=== PATIENT | female | born 1970 ===

== ENCOUNTER 2018-07-08 13:13 | Emergency (ER) | payer SELFPAY ==
[2018-07-08 13:39] VITALS: PULSE 83; RESP 18; TEMP 98.3; O2SAT 98
--- NOTE | 2018-07-08 14:18 | ED PDOC ---
Lower Extremity Pain/Injury Time Seen by Provider: 07/08/18 13:50 Chief Complaint (Nursing): Lower Extremity Problem/Injury Chief Complaint (Provider): Lower Extremity Problem/Injury History Per: Patient History/Exam Limitations: no limitations Onset/Duration Of Symptoms: Days (x30) Current Symptoms Are (Timing): Still Present Additional Complaint(s): 47 y/o female presents to the ED complaining of pain to the left 2nd and 3rd toes for the past month. Patient reports taking one tablet of Advil for pain this morning which did not help. She denies trauma or injury but states she is on her feet a lot. PMD: Aby Parry Past Medical History Reviewed: Historical Data, Nursing Documentation, Vital Signs Vital Signs: Last Vital Signs Temp 98.3 F 07/08/18 13:38 Pulse 83 07/08/18 13:38 Resp 18 07/08/18 13:38 BP Pulse Ox 98 07/08/18 13:38 - Medical History PMH: Anemia, HTN - Surgical History Surgical History: No Surg Hx - Family History Family History: States: No Known Family Hx - Living Arrangements Living Arrangements: With Family - Social History Current smoker - smoking cessation education provided: No Alcohol: None Drugs: Denies - Home Medications Home Medications: Ambulatory Orders Medication Instructions Recorded Ascorbic Acid [Vitamin C 500 mg 500 mg PO DAILY 01/01/18 Tab] Cyanocobalamin [Vitamin B12 1000 1 tab PO DAILY 01/01/18 mcg Tab] Olmesartan Medoxomil [Benicar] 40 mg PO DAILY 01/01/18 Ferrous Sulfate [Feosol] 325 mg PO BID #60 tab 01/02/18 Ibuprofen [Motrin] 600 mg PO Q6 PRN #15 tab 07/08/18 - Allergies Allergies/Adverse Reactions: Allergies Allergy/AdvReac Type Severity Reaction Status Date / Time No Known Allergies Allergy Verified 04/14/18 17:41 Wells Criteria for PE - Wells Criteria for Pulmonary Embolism Clinical Signs and Symptoms of DVT: No P.E is #1 Diagnosis, or Equally Likely: No Heart Rate >100: No Immobilization at least 3 days;Surgery previous 4 weeks: No Previous, objectively diagnosed PE or DVT: No Hemoptysis: No Malignancy w/treatment within 6 months, or palliative: No Total Score: 0 Review of Systems ROS Statement: Except As Marked, All Systems Reviewed And Found Negative Musculoskeletal: Positive for: Foot Pain (2nd and 3rd toe pain) Physical Exam - Reviewed Nursing Documentation Reviewed: Yes Vital Signs Reviewed: Yes - Physical Exam Appears: Positive for: Well, No Acute Distress Head Exam: Positive for: ATRAUMATIC Skin: Positive for: Normal Color. Negative for: Rash Eye Exam: Positive for: Normal appearance Cardiovascular/Chest: Positive for: Regular Rate, Rhythm Respiratory: Positive for: Normal Breath Sounds. Negative for: Accessory Muscle Use, Respiratory Distress Extremity: Positive for: Normal ROM, Tenderness (Mild tenderness to the left 2nd and 3rd toe, no swelling or erythema, full range of motion of both toes without limitation.) Neurologic/Psych: Positive for: Alert, Oriented. Negative for: Motor/Sensory Deficits - ECG O2 Sat by Pulse Oximetry: 98 (RA) Pulse Ox Interpretation: Normal - Other Rad Left foot x-ray X-Ray: Interpreted by Me, Viewed By Me X-Ray Interpretation: no fx, no dis Medical Decision Making Medical Decision Making: Time: 1415 Impression: 47 year old with pain to left 2nd and 3rd toes Plan: -- Tylenol 975 mg PO -- Foot Left 3 Views Patient aware of x-ray results. Patient given prescription for Motrin and was referred to clinic for follow up. Zain tape to toes declined by patient. Scribe Attestation: Documented by Abel Milan, acting as a scribe for Henny Winchester PA-C. Provider Scribe Attestation: All medical record entries made by the Scribe were at my direction and personally dictated by me. I have reviewed the chart and agree that the record accurately reflects my personal performance of the history, physical exam, medical decision making, and the department course for this patient. I have also personally directed, reviewed, and agree with the discharge instructions and disposition. Disposition - Clinical Impression Clinical Impression: Toe pain - Patient ED Disposition Is Patient to be Admitted: No Counseled Patient/Family Regarding: Studies Performed, Diagnosis, Need For Followup, Rx Given - Disposition Referrals: Podiatry Clinic [Outside] Disposition: Routine/Home Disposition Time: 14:46 Condition: STABLE Additional Instructions: Take prescription meds as directed as needed for pain. Follow-up with podiatry clinic for further evaluation. Prescriptions: Ibuprofen [Motrin] 600 mg PO Q6 PRN #15 tab PRN Reason: Pain, Moderate (4-7) Instructions: Foot Sprain (DC) Forms: [employer] ([place]) Print Language: CYMRO
--- NOTE | 2018-07-08 14:59 | RAD ---
Date of service: 07/08/2018 PROCEDURE: Left Foot Radiographs. HISTORY: 2nd and 3rd toe pain COMPARISON: None. FINDINGS: BONES: Bone alignment and mineralization are normal. There is no acute displaced fracture or bone destruction. JOINTS: Normal. SOFT TISSUES: Normal. OTHER FINDINGS: None. IMPRESSION: Normal examination.
== END 2018-07-08 15:06 | disposition home or self-care (01) ==
LOC: H.ER 13:13
DX: M79.675 Pain in left toe(s) (principal)

== ENCOUNTER 2018-07-17 10:36 | Observation (INO) | payer SELFPAY ==
[2018-07-17] MEDS ORDERED: Sodium Chloride 0.9% 1,000 ML IV STA (11:14)
--- NOTE | 2018-07-17 11:31 | ED PDOC ---
HPI: Female Pain Chief Complaint (Provider): Vaginal bleed with lightheadedness History Per: Patient History/Exam Limitations: language barrier (Khmer) Onset/Duration Of Symptoms: Hrs (Lightheaded for 2 hrs), Days (vaginal bleed for 3 weeks) Current Symptoms Are (Timing): Better Severity: Mild Pain Scale Rating Of: 2 Ant/Post Bofy Image: 1 - Pelvic, menses like cramping Quality Of Discomfort: Cramping Alleviating Factors: Rest Additional Complaint(s): 47 yo F with pmhx of anemia, htn, and uterine fibroids presents with 3 week history of consistent vaginal bleed and 2 hour history of lightheadedness. Vaginal bleed began approximately 3 weeks prior, has been daily, requiring approximately 3-15 pads per day with clots. She reports associated pelvic, menses like pain that is intermittent and mild. Denies recent vaginal trauma. Lightheadedness: she reports began 2 hours prior to presentation. She denies loss of consciousness or falls. Per patient, she was diagnosed with anemia at age 7 requiring annual B12 injections. She consumes a regular diet including all meats. Of note: She reports receiving a transfusion of 2 units of packed RBCs 4 months ago without adverse affects. Family history: HTN Surg: bilateral tubal ligation. Soc: Denies smoking, etoh, illicit drugs; Last sexual activity 1 year ago. NKDA Abnormal Vaginal Bleeding: Yes Last Menstral Period: 06/27/2018 : 4 Para: 3 Miscarriage: 1 <Ethan Briscoe - Last Filed: 07/17/18 11:43> <Tai Cates - Last Filed: 07/17/18 13:25> Time Seen by Provider: 07/17/18 10:44 Supervising Attending Note - Supervising Attending Note The Documented history was done by the: Physician Square Cutter The documented physical exam was done by the: Physician Square Cutter The documented procedures were done by the: Physician Square Cutter - Attestation: I have personally seen and examined this patient.: Yes I have fully participated in the care of the patient.: Yes I have reviewed all pertinent clinical information, including history, physical exam and plan: Yes - Notes: Notes:: Vaginal bleeding; anemia hx. <CatesTai Last Filed: 07/17/18 13:25> Past Medical History - Medical History PMH: Anemia, HTN Denies: Chronic Kidney Disease Other PMH: Leiomyomas at age 27 - Surgical History Other surgeries: bilateral tubal ligation - Family History Family History: States: Hypertension - Social History Current smoker - smoking cessation education provided: No Alcohol: None Drugs: Denies - Immunization History Hx Tetanus Toxoid Vaccination: No Hx Influenza Vaccination: No Hx Pneumococcal Vaccination: No <Ethan Briscoe Last Filed: 07/17/18 11:43> Vital Signs: Last Vital Signs Temp 97.9 F 07/17/18 13:17 Pulse 100 H 07/17/18 11:00 Resp 14 07/17/18 11:00 BP 127/61 07/17/18 11:00 Pulse Ox 98 07/17/18 11:00 <Tai Cates Last Filed: 07/17/18 13:25> - Home Medications Home Medications: Ambulatory Orders Medication Instructions Recorded Cyanocobalamin [Vitamin B12 1000 1 tab PO DAILY 01/01/18 mcg Tab] Olmesartan Medoxomil [Benicar] 40 mg PO DAILY 01/01/18 Ferrous Sulfate [Feosol] 325 mg PO BID #60 tab 01/02/18 - Allergies Allergies/Adverse Reactions: Allergies Allergy/AdvReac Type Severity Reaction Status Date / Time No Known Allergies Allergy Verified 04/14/18 17:41 Review of Systems Constitutional: Positive for: Weakness Genitourinary Female: Positive for: Vaginal Bleeding, Pelvic Pain Neurological: Positive for: Weakness, Other (lightheadedness) <Ethan Briscoe Filed: 07/17/18 11:43> Physical Exam - Physical Exam Appears: Positive for: Non-toxic, No Acute Distress Head Exam: Positive for: ATRAUMATIC, NORMAL INSPECTION Skin: Positive for: Warm, Dry, Pallor Eye Exam: Positive for: Normal appearance, EOMI, PERRL Neck: Positive for: Normal Cardiovascular/Chest: Positive for: Regular Rate, Rhythm, Chest Non Tender. Negative for: Edema Respiratory: Positive for: Normal Breath Sounds. Negative for: Wheezing Gastrointestinal/Abdominal: Positive for: Normal Exam, Bowel Sounds, Soft. Negative for: Distended, Guarding, Rebound Pelvic Exam: Positive for: External Exam Normal, Active Bleeding. Negative for : Cervicitis, Tender W/Cervical Motion, Tender Uterus Back: Negative for: L CVA Tenderness, R CVA Tenderness Neurologic/Psych: Positive for: Alert, showplace manager II-XII, Oriented, Mood/Affect <Ethan Briscoe - Last Filed: 07/17/18 11:43> - Physical Exam Appears: Positive for: Uncomfortable. Negative for: Non-toxic, No Acute Distress Cardiovascular/Chest: Positive for: Regular Rate, Rhythm Respiratory: Positive for: Normal Breath Sounds Gastrointestinal/Abdominal: Positive for: Soft. Negative for: Tenderness <Tai Cates Nani - Last Filed: 07/17/18 13:25> - Laboratory Results Result Diagrams: 07/17/18 11:30 07/17/18 11:30 Interpretation Of Abn Labs: 5.3 hg - Progress ED Course And Treament: 1200: Pending US. Will need transfusion. 1323: Spoke with Dr. Isbell. Will admit obs tele. Stable. AAOx3. - Critical Care Total Time (In Min): 30 Documented Critical Care: Time excludes all time spent performint seperately billable procedures <Tai Cates Nani - Last Filed: 07/17/18 13:25> Disposition <Ethan Briscoe - Last Filed: 07/17/18 11:43> - Patient ED Disposition Is Patient to be Admitted: Yes Counseled Patient/Family Regarding: Studies Performed, Diagnosis - Disposition Disposition Time: 13:00 - Pt Status Changed To: Hospital Disposition Of: Observation - POA Present On Arrival: None <Tai Cates Nani - Last Filed: 07/17/18 13:25> - Clinical Impression Clinical Impression: Anemia, Vaginal bleeding - Disposition Condition: FAIR
[2018-07-17 11:55] LABS: BASO # 0.1 K/uL (0.0-0.2); BASO % 0.6 % (0.0-2.0); MONO # 0.4 K/uL (0.0-0.8); MONO % 4.2 % (0.0-10.0)
[2018-07-17 12:08] LABS: BLOOD UREA NITROGEN 8 mg/dl (7-17); CALCIUM 8.1 mg/dL (8.4-10.2); GFR AFRICAN-AMERICAN > 60; GFR NON-AFRICAN AMERICAN > 60
[2018-07-17 12:09] LABS: EOS % 0.2 % (0.0-4.0); LYMPH # 0.6 K/uL (1.0-4.3); LYMPH % 6.3 % (20.0-40.0); MEAN CORPUSCULAR HEMOGLOBIN 24.8 pg (27.0-31.0); MEAN CORPUSCULAR HGB CONC 31.8 g/dL (33.0-37.0); NEUT # 7.9 K/uL (1.8-7.0); NEUT % 88.7 % (50.0-75.0); NRBC % 0.1 % (0.0-0.0); PLATELET COUNT 310 K/uL (130-400); RBC 2.13 Mil/uL (3.80-5.20); RED CELL DISTRIBUTION WIDTH 19.1 % (11.5-14.5); WHITE BLOOD COUNT 8.9 K/uL (4.8-10.8)
[2018-07-17 12:15] LABS: HEMOGLOBIN 5.3 g/dL (12.0-16.0)
--- NOTE | 2018-07-17 12:35 | CP.PCM.HP ---
History of Present Illness - History of Present Illness History of Present Illness: CC: bleeding HPI: 47 y/o female with MHx significant for HTN and AUB (FIBROIDS) resulting in anemia requiring transfusions multiple times in the past (last time here 04/2018 ) presents today with a 2 hour history of gradual onset moderate lightheadedness associated with mild fatigue. Pt H/H 5.3/16.6, HR 100, receiving 2 units PRBC in ED. Stable, repeat CBC when complete. ROS: per HPI all other systems reviewed and negative Present on Admission - Present on Admission Any Indicators Present on Admission: No Past Patient History - Infectious Disease Hx of Infectious Diseases: None - Tetanus Immunizations Tetanus Immunization: Unknown - Past Medical History & Family History Past Medical History?: Yes - Past Social History Alcohol: None Drugs: Denies - CARDIAC Hx Hypertension: Yes - PULMONARY Hx Respiratory Disorders: No - NEUROLOGICAL Hx Neurological Disorder: No - HEENT Hx HEENT Problems: No - RENAL Hx Chronic Kidney Disease: No - ENDOCRINE/METABOLIC Hx Endocrine Disorders: No - HEMATOLOGICAL/ONCOLOGICAL Hx Anemia: Yes - INTEGUMENTARY Hx Dermatological Problems: No - MUSCULOSKELETAL/RHEUMATOLOGICAL Hx Musculoskeletal Disorders: No Hx Falls: No - GASTROINTESTINAL Hx Gastrointestinal Disorders: No - GENITOURINARY/GYNECOLOGICAL Hx Genitourinary Disorders: Yes Other/Comment: fibroids, ovarian cysts, abnormal uterine bleeding, and tubal ligation - PSYCHIATRIC Hx Psychophysiologic Disorder: No Hx Substance Use: No - SURGICAL HISTORY Hx Surgeries: Yes Hx Tubal Ligation: Yes - ANESTHESIA Hx Anesthesia: Yes Hx Anesthesia Reactions: No Hx Malignant Hyperthermia: No Meds Allergies/Adverse Reactions: Allergies Allergy/AdvReac Type Severity Reaction Status Date / Time No Known Allergies Allergy Verified 04/14/18 17:41 Physical Exam - Constitutional Additional comments: Vitals Reviewed GEN: WDWN, alert, cooperative HEENT: NCAT, PERRL, EOMI HEART: RRR, +S1S2, NO MRG LUNG: CTAB, NO WRR ABD: soft, NT, ND, No HSM, No masses EXT: normal pedal pulses NEURO: awake, alert SKIN: warm, dry PSYCH: normal mood, normal affect Results - Vital Signs Recent Vital Signs: Last Vital Signs Temp Pulse 100 H 07/17/18 11:00 Resp 14 07/17/18 11:00 BP 127/61 07/17/18 11:00 Pulse Ox 98 07/17/18 11:00 - Labs Result Diagrams: 07/17/18 11:30 07/17/18 11:30 Labs: Laboratory Results - last 24 hr 07/17/18 07/17/18 07/17/18 11:30 11:30 11:30 WBC 8.9 RBC 2.13 L Hgb 5.3 L* D Hct 16.6 L MCV 78.0 L D MCH 24.8 L MCHC 31.8 L RDW 19.1 H Plt Count 310 MPV 8.0 Neut % (Auto) 88.7 H Lymph % (Auto) 6.3 L [place] % (Auto) 4.2 Eos % (Auto) 0.2 Baso % (Auto) 0.6 Neut # (Auto) 7.9 H Lymph # (Auto) 0.6 L [place] # (Auto) 0.4 Eos # (Auto) 0.0 Baso # (Auto) 0.1 Sodium 137 Potassium 3.4 L Chloride 109 H Carbon Dioxide 22 Anion Gap 9 L BUN 8 Creatinine 0.5 L Est GFR ( Amer) > 60 Est GFR (Non-Af Amer) > 60 Random Glucose 116 H Calcium 8.1 L Crossmatch See Detail BBK History Checked Patient has bt Assessment & Plan - Assessment and Plan (Free Text) Plan: 47 y/o female with MHx significant for HTN and AUB (FIBROIDS) resulting in anemia requiring transfusions multiple times in the past (last time here 04/2018 ) presents today with a 2 hour history of gradual onset moderate lightheadedness associated with mild fatigue. Pt H/H 5.3/16.6, HR 100, receiving 2 units PRBC in ED. Stable, repeat CBC when complete. Blood loss anemia Vaginal Bleed Fibroids pt to receive 2 units PRBC repeat CBC when complete pt needs to follow up OBGYN as outpatient no lovenox/heparin
[2018-07-17 13:02] LABS: BANDS 2 % (0-2); BASOPHIL 1 % (0-2); EOSINOPHIL 2 % (0-7); LYMPHOCYTE 5 % (20-50); MONOCYTE 2 % (0-10); NEUTROPHIL 88 % (42-75); PLATELET ESTIMATE NORMAL (NORMAL); TOTAL CELLS COUNTED 100
[2018-07-17 13:07] LABS: ANISOCYTOSIS SLIGHT; HYPOCHROMIC MODERATE; MICROCYTOSIS SLIGHT; OVALOCYTES SLIGHT; POIKILOCYTOSIS SLIGHT
--- NOTE | 2018-07-17 13:59 | US ---
Date of service: 07/17/2018 HISTORY: Vaginal bleeding. LMP 06/25/2018 irregular cycles. COMPARISON: 01/01/2018. 04/14/2018 serial pelvic ultrasound studies TECHNIQUE: Transvaginal only. Real -time technique with 2D, duplex and color Doppler FINDINGS: UTERUS: Measures 7.4 x 8.9 x 13.5 cm. Enlarged heterogeneous echo characteristics 1. Fundal fibroid 2.9 x 3.1 x 3.6 cm. 2. Submucosal fibroid 1.4 x 1.7 x 1.9 cm. 3. Posterior sub serosal fibroid 1.6 x 1.2 x 2.8 cm. 4. Sub serosal fibroid lower uterine segment 1.1 x 1.4 x 1.7 cm. ENDOMETRIUM: Measures 14.8 mm in diameter. Endometrial hypertrophy with fluid and perhaps debris within the endometrial canal. CERVIX: No cervical abnormality identified. RIGHT OVARY: Measures 2 x 2.6 x 3.9 cm. No solid mass. Normal flow. Simple cyst 1.1 x 1.5 cm. LEFT OVARY: Measures 4.5 x 5 x 6.1 cm. No solid mass. Normal flow. 2 simple cysts. 4 x 4.4 x 4.4 cm. Smaller simple cyst 2 x 2.2 x 2.3 cm. FREE FLUID: No significant free fluid noted. OTHER FINDINGS: None. IMPRESSION: Enlarged, heterogeneous uterus with multiple (4) uterine fibroids. These are approximately stable. Endometrial hypertrophy with fluid in the endometrial canal. Bilateral simple adnexal cysts.
[2018-07-17 20:44] VITALS: RESP 18
[2018-07-18 05:09] VITALS: O2SAT 99
[2018-07-18 05:28] LABS: HEMOGLOBIN 8.2 g/dL (12.0-16.0); MEAN CELL VOLUME 80.8 fl (81.0-99.0); MEAN CORPUSCULAR HEMOGLOBIN 27.2 pg (27.0-31.0); MEAN CORPUSCULAR HGB CONC 33.6 g/dL (33.0-37.0); RBC 3.01 Mil/uL (3.80-5.20); RED CELL DISTRIBUTION WIDTH 17.8 % (11.5-14.5); WHITE BLOOD COUNT 7.6 K/uL (4.8-10.8)
[2018-07-18 07:56] VITALS: BP 132/85; PULSE 85; TEMP 98
--- NOTE | 2018-07-18 08:34 | CARD ---
APPROVED REPORT Date of service: 07/17/2018 <Conclusion> Normal sinus rhythm Normal ECG
--- NOTE | 2018-07-18 09:07 | CP.PCM.DIS ---
Provider - Provider Date of Admission: 07/17/18 12:22 Attending physician: Josselin Isbell DO Time Spent in preparation of Discharge (in minutes): 30 Hospital Course - Lab Results Lab Results: Most Recent Lab Values WBC 7.6 K/uL (4.8-10.8) 07/18/18 05:22 RBC 3.01 Mil/uL (3.80-5.20) L 07/18/18 05:22 Hgb 8.2 g/dL (12.0-16.0) L D 07/18/18 05:22 Hct 24.4 % (34.0-47.0) L 07/18/18 05:22 MCV 80.8 fl (81.0-99.0) L D 07/18/18 05:22 MCH 27.2 pg (27.0-31.0) 07/18/18 05:22 MCHC 33.6 g/dL (33.0-37.0) 07/18/18 05:22 RDW 17.8 % (11.5-14.5) H 07/18/18 05:22 Plt Count 293 K/uL (130-400) 07/18/18 05:22 MPV 8.0 fl (7.2-11.7) 07/17/18 11:30 Neut % (Auto) 88.7 % (50.0-75.0) H 07/17/18 11:30 Lymph % (Auto) 6.3 % (20.0-40.0) L 07/17/18 11:30 [place] % (Auto) 4.2 % (0.0-10.0) 07/17/18 11:30 Eos % (Auto) 0.2 % (0.0-4.0) 07/17/18 11:30 Baso % (Auto) 0.6 % (0.0-2.0) 07/17/18 11:30 Neut # (Auto) 7.9 K/uL (1.8-7.0) H 07/17/18 11:30 Lymph # (Auto) 0.6 K/uL (1.0-4.3) L 07/17/18 11:30 [place] # (Auto) 0.4 K/uL (0.0-0.8) 07/17/18 11:30 Eos # (Auto) 0.0 K/uL (0.0-0.7) 07/17/18 11:30 Baso # (Auto) 0.1 K/uL (0.0-0.2) 07/17/18 11:30 Neutrophils % (Manual) 88 % (42-75) H 07/17/18 11:30 Band Neutrophils % 2 % (0-2) 07/17/18 11:30 Lymphocytes % (Manual) 5 % (20-50) L 07/17/18 11:30 Monocytes % (Manual) 2 % (0-10) 07/17/18 11:30 Eosinophils % (Manual) 2 % (0-7) 07/17/18 11:30 Basophils % (Manual) 1 % (0-2) 07/17/18 11:30 Platelet Estimate Normal (NORMAL) 07/17/18 11:30 Hypochromasia (manual) Moderate 07/17/18 11:30 Poikilocytosis (manual Slight 07/17/18 11:30 Anisocytosis (manual) Slight 07/17/18 11:30 Microcytosis (manual) Slight 07/17/18 11:30 Ovalocytes Slight 07/17/18 11:30 Sodium 137 mmol/l (132-148) 07/17/18 11:30 Potassium 3.4 MMOL/L (3.6-5.0) L 07/17/18 11:30 Chloride 109 mmol/L (98-107) H 07/17/18 11:30 Carbon Dioxide 22 mmol/L (22-30) 07/17/18 11:30 Anion Gap 9 (10-20) L 07/17/18 11:30 BUN 8 mg/dl (7-17) 07/17/18 11:30 Creatinine 0.5 mg/dl (0.7-1.2) L 07/17/18 11:30 Est GFR ( Amer) > 60 07/17/18 11:30 Est GFR (Non-Af Amer) > 60 07/17/18 11:30 Random Glucose 116 mg/dL (65-105) H 07/17/18 11:30 Calcium 8.1 mg/dL (8.4-10.2) L 07/17/18 11:30 Blood Type O POSITIVE 07/17/18 11:30 Antibody Screen Negative 07/17/18 11:30 Crossmatch See Detail 07/17/18 11:30 BBK History Checked Patient has bt 07/17/18 11:30 - Hospital Course Hospital Course: 47 y/o female with MHx significant for HTN and AUB (FIBROIDS) resulting in anemia requiring transfusions multiple times in the past (last time here 04/2018 ) presents today with a 2 hour history of gradual onset moderate lightheadedness associated with mild fatigue. Pt H/H 5.3/16.6, HR 100, receiving 2 units PRBC in ED. Stable, repeat CBC when complete. H/H stable this morning, improved. Patient has OBGYN who she follows with as outpatient. patient to also follow up with [facility]. Blood loss anemia Vaginal Bleed Fibroids pt to receive 2 units PRBC repeat CBC when complete pt needs to follow up OBGYN as outpatient no lovenox/heparin Discharge Exam - Head Exam Head Exam: ATRAUMATIC, NORMAL INSPECTION - Eye Exam Eye Exam: EOMI, Normal appearance, PERRL Pupil Exam: NORMAL ACCOMODATION - ENT Exam ENT Exam: Mucous Membranes Moist, Normal Oropharynx - Respiratory Exam Respiratory Exam: Clear to PA & Lateral, NORMAL BREATHING PATTERN - Cardiovascular Exam Cardiovascular Exam: RRR, +S1, +S2 - GI/Abdominal Exam GI & Abdominal Exam: Normal Bowel Sounds, Soft. absent: Organomegaly, Tenderness - Extremities Exam Extremities exam: normal capillary refill, pedal pulses present - Back Exam Back exam: absent: CVA tenderness (L), CVA tenderness (R) - Neurological Exam Neurological exam: Alert, Oriented x3 - Psychiatric Exam Psychiatric exam: Normal Affect, Normal Mood - Skin Skin Exam: Dry, Warm Discharge Plan - Discharge Medications Prescriptions: Cyanocobalamin [Vitamin B12 1000 mcg Tab] 1 tab PO DAILY #30 tab Ferrous Sulfate [Feosol] 325 mg PO BID #60 tab Olmesartan Medoxomil [Benicar] 40 mg PO DAILY #30 tablet - Follow Up Plan Condition: FAIR Disposition: HOME/ ROUTINE Referrals: [facility] [Provider Group]
== END 2018-07-18 11:54 | disposition home or self-care (01) ==
LOC: H.ER 10:36 → H.ERHOLD 12:22 → H.TEL 17:20
PROVIDERS: ADMIT Student in an Organized Health Care Education/Training Program; ATTEND Student in an Organized Health Care Education/Training Program
DX: D50.0 Iron deficiency anemia secondary to blood loss (chronic) (principal); N93.8 Other specified abnormal uterine and vaginal bleeding; D25.9 Leiomyoma of uterus, unspecified; I10 Essential (primary) hypertension
CPT/HCPCS: 36415; 36430; 76830; 80048; 85025; 85027; 86850; 86900; 86920; 93005; 96360; 99285; G0378; J7030; P9051

== ENCOUNTER 2018-07-25 16:33 | Observation (INO) | payer SELFPAY ==
--- NOTE | 2018-07-25 17:46 | ED PDOC ---
Syncope/Near Syncope/Dizziness Chief Complaint (Provider): "I'm having a lot of vaginal bleeding." History Per: Patient History/Exam Limitations: no limitations Onset/Duration Of Symptoms: Days, Persistent Current Symptoms Are (Timing): Still Present Activity At Onset Of Symptoms: Standing Associated Symptoms Preceding Syncopal Episode: Lightheadedness. denies: No Predromal Symptoms (Sudden Onset), Vertigo Possible Causative Factor(s): Lightheaded W/Standing. denies: Vertigo, Recent Alcohol Fall Associated With With Symptoms: No Pain Scale Rating Of: 0 Additional History Per: Patient Additional Complaint(s): 47 y/o Croatian speaking female w/ pmhx of uterine fibroids, anemia, and HTN who presents to the ER w/ c/o heavy vaginal bleeding persisting for 1 month, requiring multiple packs of sanitary pads per day. The bleeding is bright red and w/ clots. She also c/o dizziness and weakness. Patient denies falling, losing consciousness, or hitting her head. "I felt dizzy and sat down on the chair." She had a similar episode 1 week ago, came to the ER and was found to have low hemoglobin, and required hospitalization for blood transfusions. She was recommended to follow up with [facility], but has not followed up. Patient denies chest pain, palpitations, SOB, headache, nausea, vomiting, numbness, tingling urinary symptoms. Voyce:[id number] <Roxanne Villaseñor - Last Filed: 07/25/18 19:03> <Henny Savage - Last Filed: 07/26/18 16:07> Time Seen by Provider: 07/25/18 17:44 Chief Complaint (Nursing): Dizziness/Lightheaded Supervising Attending Note - Supervising Attending Note The Documented history was done by the: Physician Service Car Operator The documented physical exam was done by the: Physician Service Car Operator, Attending Physician - Attestation: I have fully participated in the care of the patient.: Yes I have reviewed all pertinent clinical information: Yes <Henny Savage - Last Filed: 07/26/18 16:07> Past Medical History Vital Signs: Last Vital Signs Temp 98.0 F 07/25/18 16:43 Pulse 104 H 07/25/18 16:43 Resp 16 07/25/18 16:43 BP 99/65 L 07/25/18 16:43 Pulse Ox 99 07/25/18 16:43 - Medical History PMH: Anemia, HTN Denies: Chronic Kidney Disease - Surgical History Other surgeries: bilateral tubal ligation - Family History Family History: States: Unknown Family Hx, Hypertension Other Family History: no fam hx of uterine cancer - Social History Current smoker - smoking cessation education provided: No Ex-Smoker (has not smoked in the last 12 months): No Alcohol: None Drugs: Denies - Immunization History Hx Tetanus Toxoid Vaccination: No Hx Influenza Vaccination: No Hx Pneumococcal Vaccination: No <Roxanne Villaseñor - Last Filed: 07/25/18 19:03> Vital Signs: Last Vital Signs Temp 98.2 F 07/26/18 15:45 Pulse 96 H 07/26/18 15:45 Resp 20 07/26/18 15:45 BP 121/75 07/26/18 15:45 Pulse Ox 100 07/26/18 12:26 <Henny Savage - Last Filed: 07/26/18 16:07> - Home Medications Home Medications: Ambulatory Orders Medication Instructions Recorded Ferrous Sulfate [Feosol] 325 mg PO BID #60 tab 07/18/18 Olmesartan Medoxomil [Benicar] 40 mg PO DAILY #30 tablet 07/18/18 MedroxyPROGESTERone [Provera] 20 mg PO DAILY #30 tab 07/26/18 - Allergies Allergies/Adverse Reactions: Allergies Allergy/AdvReac Type Severity Reaction Status Date / Time No Known Allergies Allergy Verified 04/14/18 17:41 Review of Systems Constitutional: Positive for: Sweats, Weakness, Malaise. Negative for: Fever, Chills Eyes: Negative for: Vision Change Cardiovascular: Positive for: Light Headedness. Negative for: Chest Pain, Palpitations Respiratory: Negative for: Shortness of Breath, SOB with Exertion Gastrointestinal: Positive for: Constipation. Negative for: Nausea, Vomiting, Abdominal Pain, Diarrhea, Hematochezia, Hematemesis Genitourinary Female: Negative for: Dysuria Skin: Negative for: Rash Neurological: Positive for: Weakness, Dizziness. Negative for: Numbness, Confusion, Altered Mental Status, Headache <Roxanne Villaseñor - Last Filed: 07/25/18 19:03> Physical Exam - Reviewed Nursing Documentation Reviewed: Yes Vital Signs Reviewed: Yes - Physical Exam Appears: Positive for: No Acute Distress Head Exam: Positive for: ATRAUMATIC, NORMAL INSPECTION, NORMOCEPHALIC Skin: Positive for: Normal Color, Warm, Dry. Negative for: Diaphoresis, Pallor Eye Exam: Positive for: Normal appearance Neck: Positive for: Normal Cardiovascular/Chest: Positive for: Regular Rate, Rhythm, Chest Non Tender. Negative for: Bradycardia, Tachycardia Respiratory: Positive for: Normal Breath Sounds Gastrointestinal/Abdominal: Positive for: Bowel Sounds, Soft, Tenderness ( suprapubic tenderness ). Negative for: Distended, Guarding Back: Negative for: L CVA Tenderness, R CVA Tenderness Extremity: Negative for: Tenderness, Pedal Edema, Calf Tenderness Neurologic/Psych: Positive for: Alert, Oriented <Roxanne Villaseñor - Last Filed: 07/25/18 19:03> - ECG O2 Sat by Pulse Oximetry: 99 - Progress ED Course And Treament: Assessment: 47 y/o female w/ severe blood loss secondary to multiple uterine fibroids. Plan: Type and screen blood CBC w/ diff CMP PT, PT Urine dipstick Orthostatic BP NaCl- 1 L bolus <Roxanne Villaseñor - Last Filed: 07/25/18 19:03> - Laboratory Results Result Diagrams: 07/26/18 12:30 07/26/18 12:30 <Henny Savage - Last Filed: 07/26/18 16:07> Disposition - Disposition Disposition Time: 19:04 <Roxanne Villaseñor - Last Filed: 07/25/18 19:03> <Henny Savage - Last Filed: 07/26/18 16:07> - Clinical Impression Clinical Impression: Fibroid (bleeding) (uterine), Vaginal bleeding - Disposition Condition: STABLE
[2018-07-25] MEDS ORDERED: Sodium Chloride 0.9% 1,000 ML IV STA (18:42)
[2018-07-25 19:23] LABS: INR 0.9
[2018-07-25 19:28] LABS: BASO # 0.1 K/uL (0.0-0.2); BASO % 0.6 % (0.0-2.0); LYMPH # 0.4 K/uL (1.0-4.3); LYMPH % 3.2 % (20.0-40.0); MEAN CELL VOLUME 85.6 fl (81.0-99.0); MEAN CORPUSCULAR HEMOGLOBIN 25.3 pg (27.0-31.0); MEAN CORPUSCULAR HGB CONC 29.6 g/dL (33.0-37.0); MEAN PLATELET VOLUME 8.1 fl (7.2-11.7); MONO # 0.2 K/uL (0.0-0.8); MONO % 1.7 % (0.0-10.0); NEUT # 13.4 K/uL (1.8-7.0); NEUT % 94.5 % (50.0-75.0); PLATELET COUNT 280 K/uL (130-400); RBC 1.62 Mil/uL (3.80-5.20); RED CELL DISTRIBUTION WIDTH 17.9 % (11.5-14.5); WHITE BLOOD COUNT 14.2 K/uL (4.8-10.8)
[2018-07-25 19:37] LABS: HEMOGLOBIN 4.1 g/dL (12.0-16.0)
[2018-07-25 19:41] LABS: ALB/GLOB RATIO 1.3 (1.0-2.1); ALBUMIN 3.4 g/dL (3.5-5.0); ALT/SGPT 26 U/L (9-52); AST/SGOT 23 U/L (14-36); BLOOD UREA NITROGEN 11 mg/dl (7-17); CALCIUM 8.4 mg/dL (8.4-10.2); GFR NON-AFRICAN AMERICAN > 60
[2018-07-25 19:48] LABS: PARTIAL THROMBOPLASTIN TIME 16.6 Seconds (25.6-37.1); PROTHROMBIN TIME 9.9 Seconds (9.8-13.1)
[2018-07-25 20:55] LABS: BANDS 1 % (0-2); LYMPHOCYTE 7 % (20-50); MONOCYTE 1 % (0-10); NEUTROPHIL 91 % (42-75); PLATELET ESTIMATE NORMAL (NORMAL); TOTAL CELLS COUNTED 100
[2018-07-25 20:57] LABS: ANISOCYTOSIS SLIGHT; HYPOCHROMIC MARKED
--- NOTE | 2018-07-25 21:27 | CP.PCM.HP ---
History of Present Illness - History of Present Illness History of Present Illness: This is a 47 year old female with pmh of HTN and fibroids, resulting in anemia from bleeding fibroids requiring transfusions multiple times in the past (was just here last week) again presenting to the ED with anemia secondary to bleeding. She was told to f/u with [facility] on last admission but failed to follow up. Her Hg is 4.1, Hct is 13.9. She does note some associated lightheadedness which prompted her to come to the ED. In the ED she was noted to be hemodynamically stable. She is being assessed by [facility]D MODEL[facility] and is to be placed on observation on telemetry for 2 PRBC transfusions. Patient denies chest pain, shortness of breath, fevers, chills, nausea, vomiting, diarrhea. All of the patient's questions were answered at the bedside. Present on Admission - Present on Admission Any Indicators Present on Admission: No History of DVT/PE: No History of Uncontrolled Diabetes: No Review of Systems - Review of Systems Review of Systems: A 12 point review of systems was conducted and found to be negative other than what was mentioned in the HPI. Past Patient History - Infectious Disease Hx of Infectious Diseases: None - Tetanus Immunizations Tetanus Immunization: Unknown - Past Medical History & Family History Past Medical History?: Yes Past Family History: Reviewed and not pertinent - Past Social History Alcohol: None Drugs: Denies - CARDIAC Hx Hypertension: Yes - PULMONARY Hx Respiratory Disorders: No - NEUROLOGICAL Hx Neurological Disorder: Yes Hx Migraine: Yes - HEENT Hx HEENT Problems: No - RENAL Hx Chronic Kidney Disease: No - ENDOCRINE/METABOLIC Hx Endocrine Disorders: No - HEMATOLOGICAL/ONCOLOGICAL Hx Anemia: Yes - INTEGUMENTARY Hx Dermatological Problems: No - MUSCULOSKELETAL/RHEUMATOLOGICAL Hx Musculoskeletal Disorders: No Hx Falls: No - GASTROINTESTINAL Hx Gastrointestinal Disorders: No - GENITOURINARY/GYNECOLOGICAL Hx Genitourinary Disorders: Yes Other/Comment: fibroids, ovarian cysts, abnormal uterine bleeding, and tubal ligation - PSYCHIATRIC Hx Psychophysiologic Disorder: No Hx Substance Use: No - SURGICAL HISTORY Hx Surgeries: Yes Hx Tubal Ligation: Yes - ANESTHESIA Hx Anesthesia: Yes Hx Anesthesia Reactions: No Hx Malignant Hyperthermia: No Meds Allergies/Adverse Reactions: Allergies Allergy/AdvReac Type Severity Reaction Status Date / Time No Known Allergies Allergy Verified 04/14/18 17:41 Physical Exam - Additional Findings Additional findings: Physical exam: Constitutional- cooperative, awake, alert Head- NCAT, PERRL Eye- PERRL, EOMI ENT- normal exam, MMM. Neck- normal inspection, supple, no JVD Respiratory- CTAB, no wheezes rales rhonchi Cardiovascular- RRR, +S1, +S2 no MRG GI/Abdominal- normal bowel sounds, soft, no mass, no hsm Skin- warm, dry Extremities Exam- normal capillary refill, normal inspection Neurological Exam- alert, awake, oriented Psych- normal mood, normal affect Results - Vital Signs Recent Vital Signs: Last Vital Signs Temp 98.0 F 07/25/18 16:43 Pulse 104 H 07/25/18 16:43 Resp 16 07/25/18 16:43 BP 99/65 L 07/25/18 16:43 Pulse Ox 99 07/25/18 19:06 - Labs Result Diagrams: 07/25/18 18:50 07/25/18 18:50 Labs: Laboratory Results - last 24 hr 07/25/18 07/25/18 07/25/18 18:50 18:50 18:50 WBC 14.2 H D RBC 1.62 L Hgb 4.1 L* D Hct 13.9 L MCV 85.6 D MCH 25.3 L MCHC 29.6 L RDW 17.9 H Plt Count 280 MPV 8.1 Neut % (Auto) 94.5 H Lymph % (Auto) 3.2 L Reagan % (Auto) 1.7 Eos % (Auto) 0.0 Baso % (Auto) 0.6 Neut # (Auto) 13.4 H Lymph # (Auto) 0.4 L Reagan # (Auto) 0.2 Eos # (Auto) 0.0 Baso # (Auto) 0.1 Neutrophils % (Manual) 91 H Band Neutrophils % 1 Lymphocytes % (Manual) 7 L Monocytes % (Manual) 1 Platelet Estimate Normal Hypochromasia (manual) Marked Anisocytosis (manual) Slight PT 9.9 INR 0.9 APTT 16.6 L Sodium 136 Potassium 4.2 Chloride 110 H Carbon Dioxide 17 L Anion Gap 13 BUN 11 Creatinine 0.6 L Est GFR ( Amer) > 60 Est GFR (Non-Af Amer) > 60 Random Glucose 102 Calcium 8.4 Total Bilirubin 0.3 AST 23 ALT 26 Alkaline Phosphatase 69 Total Protein 6.0 L Albumin 3.4 L Globulin 2.6 Albumin/Globulin Ratio 1.3 Assessment & Plan - Assessment and Plan (Free Text) Plan: This is a 47 year old female with pmh of HTN and fibroids, resulting in anemia from bleeding fibroids requiring transfusions multiple times in the past (was just here last week) again presenting to the ED with anemia secondary to bleeding. She was told to f/u with [facility] on last admission but failed to follow up. Her Hg is 4.1, Hct is 13.9. She does note some associated lightheadedness which prompted her to come to the ED. In the ED she was noted to be hemodynamically stable. She is being assessed by [facility] and is to be placed on observation on telemetry for 2 PRBC transfusions and we will repeat CBC in AM. Patient denies chest pain, shortness of breath, fevers, chills, nausea, vomiting, diarrhea. All of the patient's questions were answered at the bedside. Blood loss anemia Vaginal Bleed Fibroids pt to receive 2 units PRBC repeat CBC when complete 3[facility] consultation with Dr. Hernandez, will f/u for recommendations no lovenox/heparin
[2018-07-26] MEDS ORDERED: Chlorhexidine Gluconate 1 APPL/PKT TP ONE (07:45)
--- NOTE | 2018-07-26 08:18 | CARD ---
APPROVED REPORT Date of service: 07/25/2018 <Conclusion> Normal sinus rhythm Normal ECG
--- NOTE | 2018-07-26 08:34 | CP.PCM.CON ---
<Agapito Gifford - Last Filed: 07/26/18 08:46> History of Present Illness - History of Present Illness History of Present Illness: OBGYN consulted for management of persistent vaginal bleeding A 47 yo f with pmh of HTN, fibroid, ovarian cyst and Anemia due to fibroid with multiple blood and 1 platelet transfusion last week present to ER due to increase/ persistent vaginal bleeding for past 1 mo. Pt state that today she was feeling dizzy and decided to come to ED due to increase bleeding. Pt presented last week with same chief complain and was required to receive blood and platelet transfusion, Pt was discharged and advised to follow up with OBGYN which she failed to do so. Pt state that she dont like her new OBGYN doctor because she have discontinued her oral contracaption and informed her that she needed a biopsy. Pt she denies fall or trauma during the event. Pt denies any other complain. She denies headache, Chest pain, SOB, nausea, vomiting, abd pain or any other symptoms. Ob hx , NVD x3. Cigar Bander hx: no h/o std, uterine fibroids, ovarian cyst. PMH: HTN FMH: denies. NKDA. PSH: denies alcohol, smoke or drug use Vitals WNL LABs Hgb: 4.1 , HCt: 13.9 Received one transfusion of RBC today. VAG U/S ( 07/17/18) Enlarged, heterogeneous uterus with multiple (4) uterine fibroids. Endometrial hypertrophy with fluid in the endometrial canal Bilateral simple adnexal cyst Review of Systems - Review of Systems Systems not reviewed;Unavailable: Acuity of Condition - Constitutional Constitutional: As Per HPI - EENT Eyes: As Per HPI Ears: As Per HPI Nose/Mouth/Throat: As Per HPI - Breasts Breasts: As Per HPI - Cardiovascular Cardiovascular: As Per HPI - Respiratory Respiratory: As Per HPI - Gastrointestinal Gastrointestinal: As Per HPI - Genitourinary Genitourinary: As Per HPI - Reproductive: Female Reproductive:Female: As Per HPI Past Patient History - Infectious Disease Hx of Infectious Diseases: None - Tetanus Immunizations Tetanus Immunization: Unknown - Past Medical History & Family History Past Medical History?: Yes - Past Social History Smoking Status: Never Smoked - CARDIAC Hx Cardiac Disorders: Yes Hx Hypertension: Yes - PULMONARY Hx Respiratory Disorders: No - NEUROLOGICAL Hx Neurological Disorder: Yes Hx Migraine: Yes - HEENT Hx HEENT Problems: No - RENAL Hx Chronic Kidney Disease: No - ENDOCRINE/METABOLIC Hx Endocrine Disorders: No - HEMATOLOGICAL/ONCOLOGICAL Hx Blood Disorders: Yes Hx Anemia: Yes Hx Blood Transfusions: Yes Hx Blood Transfusion Reaction: No - INTEGUMENTARY Hx Dermatological Problems: No - MUSCULOSKELETAL/RHEUMATOLOGICAL Hx Musculoskeletal Disorders: No Hx Falls: No - GASTROINTESTINAL Hx Gastrointestinal Disorders: No - GENITOURINARY/GYNECOLOGICAL Hx Genitourinary Disorders: Yes Other/Comment: fibroids, ovarian cysts, abnormal vaginal bleeding - PSYCHIATRIC Hx Psychophysiologic Disorder: No Hx Substance Use: No - SURGICAL HISTORY Hx Surgeries: Yes Hx Tubal Ligation: Yes - ANESTHESIA Hx Anesthesia: Yes Hx Anesthesia Reactions: No Hx Malignant Hyperthermia: No Meds Allergies/Adverse Reactions: Allergies Allergy/AdvReac Type Severity Reaction Status Date / Time No Known Allergies Allergy Verified 04/14/18 17:41 - Medications Medications: Current Medications Acetaminophen (Tylenol 325mg Tab) 650 mg PO Q6 PRN PRN Reason: Pain, Mild (1-3) Last Admin: 07/26/18 01:01 Dose: 650 mg Physical Exam - Constitutional Appears: Well, Non-toxic, Toxic, No Acute Distress - Head Exam Head Exam: ATRAUMATIC, NORMAL INSPECTION, NORMOCEPHALIC - Eye Exam Eye Exam: EOMI, Normal appearance, PERRL Pupil Exam: NORMAL ACCOMODATION, PERRL - ENT Exam ENT Exam: Mucous Membranes Moist, Normal Exam - Neck Exam Neck exam: Positive for: Normal Inspection - Respiratory Exam Respiratory Exam: Clear to Auscultation Bilateral, NORMAL BREATHING PATTERN - Cardiovascular Exam Cardiovascular Exam: REGULAR RHYTHM - GI/Abdominal Exam GI & Abdominal Exam: Normal Bowel Sounds, Soft - Exam Additional comments: irregular Uterus 8-10 week in size upon palpation, bleeding noted on vaginal exam, no adnexal pain. - Extremities Exam Extremities exam: Positive for: normal inspection - Back Exam Back exam: NORMAL INSPECTION - Neurological Exam Neurological exam: Alert, Oriented x3 - Psychiatric Exam Psychiatric exam: Normal Affect, Normal Mood Results - Vital Signs Recent Vital Signs: Last Vital Signs Temp 98.3 F 07/26/18 07:54 Pulse 93 H 07/26/18 07:54 Resp 18 07/26/18 07:54 BP 113/73 07/26/18 07:54 Pulse Ox 100 08/25/18 07:54 - Labs Result Diagrams: 07/25/18 18:50 07/25/18 18:50 Labs: Laboratory Results - last 24 hr 07/25/18 07/25/18 07/25/18 18:50 18:50 18:50 WBC 14.2 H D RBC 1.62 L Hgb 4.1 L* D Hct 13.9 L MCV 85.6 D MCH 25.3 L MCHC 29.6 L RDW 17.9 H Plt Count 280 MPV 8.1 Neut % (Auto) 94.5 H Lymph % (Auto) 3.2 L Petroleum % (Auto) 1.7 Eos % (Auto) 0.0 Baso % (Auto) 0.6 Neut # (Auto) 13.4 H Lymph # (Auto) 0.4 L Petroleum # (Auto) 0.2 Eos # (Auto) 0.0 Baso # (Auto) 0.1 Neutrophils % (Manual) 91 H Band Neutrophils % 1 Lymphocytes % (Manual) 7 L Monocytes % (Manual) 1 Platelet Estimate Normal Hypochromasia (manual) Marked Anisocytosis (manual) Slight PT 9.9 INR 0.9 APTT 16.6 L Sodium 136 Potassium 4.2 Chloride 110 H Carbon Dioxide 17 L Anion Gap 13 BUN 11 Creatinine 0.6 L Est GFR ( Amer) > 60 Est GFR (Non-Af Amer) > 60 Random Glucose 102 Calcium 8.4 Total Bilirubin 0.3 AST 23 ALT 26 Alkaline Phosphatase 69 Total Protein 6.0 L Albumin 3.4 L Globulin 2.6 Albumin/Globulin Ratio 1.3 Blood Type Antibody Screen Crossmatch BBK History Checked 07/25/18 21:20 WBC RBC Hgb Hct MCV MCH MCHC RDW Plt Count MPV Neut % (Auto) Lymph % (Auto) Petroleum % (Auto) Eos % (Auto) Baso % (Auto) Neut # (Auto) Lymph # (Auto) Petroleum # (Auto) Eos # (Auto) Baso # (Auto) Neutrophils % (Manual) Band Neutrophils % Lymphocytes % (Manual) Monocytes % (Manual) Platelet Estimate Hypochromasia (manual) Anisocytosis (manual) PT INR APTT Sodium Potassium Chloride Carbon Dioxide Anion Gap BUN Creatinine Est GFR ( Amer) Est GFR (Non-Af Amer) Random Glucose Calcium Total Bilirubin AST ALT Alkaline Phosphatase Total Protein Albumin Globulin Albumin/Globulin Ratio Blood Type O POSITIVE Antibody Screen Negative Crossmatch See Detail BBK History Checked Patient has bt Assessment & Plan - Assessment and Plan (Free Text) Assessment: A 47 yo f with pmh of HTN, fibroid, ovarian cyst and Anemia due to fibroid with multiple blood and 1 platelet transfusion last week present to ER due to increase/ persistent vaginal bleeding for past 1 mo. Admitted for transfusion, OBGYN consulted for management of Persistent vaginal bleeding. Pt is not in acute distress Pt Is lying comfortable in bed H/H 4.1/13.9 (07/25/18) 18:50 Transfused 1 RBC, ordered 2 Plan Chronic vaginal bleeding, most likely due to fibroid, can be managed as outpt Will start on Provera 20mg daily Pt should and need to see her OBGYN doctor for endometrial biopsy and further management of vaginal bleeding as outpt It is critical to see her OBGYN doctor as soon as possible. From OBGYN stand point, Pt is stable to be discharged home after blood transfusion is completed. OBGYN sign off consult, Re-consult if needed Thanks for the consult Case discussed with <Fortunato Hernandez - Last Filed: 07/26/18 18:18> Meds - Medications Medications: Current Medications Acetaminophen (Tylenol 325mg Tab) 650 mg PO Q6 PRN PRN Reason: Pain, Mild (1-3) Last Admin: 07/26/18 01:01 Dose: 650 mg Medroxyprogesterone Acetate (Provera) 20 mg PO DAILY ADAM Last Admin: 07/26/18 09:38 Dose: 20 mg Results - Vital Signs Recent Vital Signs: Last Vital Signs Temp 98.4 F 07/26/18 16:30 Pulse 91 H 07/26/18 16:30 Resp 18 07/26/18 16:30 BP 133/84 07/26/18 16:30 Pulse Ox 99 07/26/18 16:05 - Labs Result Diagrams: 07/26/18 12:30 07/26/18 12:30 Labs: Laboratory Results - last 24 hr 07/25/18 07/25/18 07/25/18 18:50 18:50 18:50 WBC 14.2 H D RBC 1.62 L Hgb 4.1 L* D Hct 13.9 L MCV 85.6 D MCH 25.3 L MCHC 29.6 L RDW 17.9 H Plt Count 280 MPV 8.1 Neut % (Auto) 94.5 H Lymph % (Auto) 3.2 L Petroleum % (Auto) 1.7 Eos % (Auto) 0.0 Baso % (Auto) 0.6 Neut # (Auto) 13.4 H Lymph # (Auto) 0.4 L Petroleum # (Auto) 0.2 Eos # (Auto) 0.0 Baso # (Auto) 0.1 Neutrophils % (Manual) 91 H Band Neutrophils % 1 Lymphocytes % (Manual) 7 L Monocytes % (Manual) 1 Platelet Estimate Normal Hypochromasia (manual) Marked Anisocytosis (manual) Slight PT 9.9 INR 0.9 APTT 16.6 L Sodium 136 Potassium 4.2 Chloride 110 H Carbon Dioxide 17 L Anion Gap 13 BUN 11 Creatinine 0.6 L Est GFR ( Amer) > 60 Est GFR (Non-Af Amer) > 60 Random Glucose 102 Calcium 8.4 Total Bilirubin 0.3 AST 23 ALT 26 Alkaline Phosphatase 69 Total Protein 6.0 L Albumin 3.4 L Globulin 2.6 Albumin/Globulin Ratio 1.3 Blood Type Antibody Screen Crossmatch BBK History Checked 07/25/18 07/26/18 07/26/18 21:20 12:30 12:30 WBC 6.9 D RBC 2.33 L Hgb 6.3 L* D Hct 19.6 L MCV 84.3 MCH 27.1 MCHC 32.2 L RDW 16.6 H Plt Count 232 MPV Neut % (Auto) Lymph % (Auto) Petroleum % (Auto) Eos % (Auto) Baso % (Auto) Neut # (Auto) Lymph # (Auto) Petroleum # (Auto) Eos # (Auto) Baso # (Auto) Neutrophils % (Manual) Band Neutrophils % Lymphocytes % (Manual) Monocytes % (Manual) Platelet Estimate Hypochromasia (manual) Anisocytosis (manual) PT INR APTT Sodium 136 Potassium 3.8 Chloride 113 H Carbon Dioxide 21 L Anion Gap 6 L BUN 8 Creatinine 0.6 L Est GFR ( Amer) > 60 Est GFR (Non-Af Amer) > 60 Random Glucose 94 Calcium 8.0 L Total Bilirubin AST ALT Alkaline Phosphatase Total Protein Albumin Globulin Albumin/Globulin Ratio Blood Type O POSITIVE Antibody Screen Negative Crossmatch See Detail BBK History Checked Patient has bt Attending/Attestation - Attestation I have personally seen and examined this patient.: Yes I have fully participated in the care of the patient.: Yes I have reviewed all pertinent clinical information: Yes Notes (Text): 07/26/18 18:16 Patient was seen and evaluated at her bedside with resident and the management dictated by myself and therefore agree with the assessment detailed by the resident.
--- NOTE | 2018-07-26 12:43 | CP.PCM.DIS ---
Provider - Provider Date of Admission: 07/25/18 19:50 Attending physician: Juan J Quach DO Primary care physician: none Consults: Ob & Peer Tutor consult Time Spent in preparation of Discharge (in minutes): 15 Hospital Course - Lab Results Lab Results: Most Recent Lab Values WBC 14.2 K/uL (4.8-10.8) H D 07/25/18 18:50 RBC 1.62 Mil/uL (3.80-5.20) L 07/25/18 18:50 Hgb 4.1 g/dL (12.0-16.0) L* D 07/25/18 18:50 Hct 13.9 % (34.0-47.0) L 07/25/18 18:50 MCV 85.6 fl (81.0-99.0) D 07/25/18 18:50 MCH 25.3 pg (27.0-31.0) L 07/25/18 18:50 MCHC 29.6 g/dL (33.0-37.0) L 07/25/18 18:50 RDW 17.9 % (11.5-14.5) H 07/25/18 18:50 Plt Count 280 K/uL (130-400) 07/25/18 18:50 MPV 8.1 fl (7.2-11.7) 07/25/18 18:50 Neut % (Auto) 94.5 % (50.0-75.0) H 07/25/18 18:50 Lymph % (Auto) 3.2 % (20.0-40.0) L 07/25/18 18:50 Runnels % (Auto) 1.7 % (0.0-10.0) 07/25/18 18:50 Eos % (Auto) 0.0 % (0.0-4.0) 07/25/18 18:50 Baso % (Auto) 0.6 % (0.0-2.0) 07/25/18 18:50 Neut # (Auto) 13.4 K/uL (1.8-7.0) H 07/25/18 18:50 Lymph # (Auto) 0.4 K/uL (1.0-4.3) L 07/25/18 18:50 Runnels # (Auto) 0.2 K/uL (0.0-0.8) 07/25/18 18:50 Eos # (Auto) 0.0 K/uL (0.0-0.7) 07/25/18 18:50 Baso # (Auto) 0.1 K/uL (0.0-0.2) 07/25/18 18:50 Neutrophils % (Manual) 91 % (42-75) H 07/25/18 18:50 Band Neutrophils % 1 % (0-2) 07/25/18 18:50 Lymphocytes % (Manual) 7 % (20-50) L 07/25/18 18:50 Monocytes % (Manual) 1 % (0-10) 07/25/18 18:50 Platelet Estimate Normal (NORMAL) 07/25/18 18:50 Hypochromasia (manual) Marked 07/25/18 18:50 Anisocytosis (manual) Slight 07/25/18 18:50 PT 9.9 Seconds (9.8-13.1) 07/25/18 18:50 INR 0.9 07/25/18 18:50 APTT 16.6 Seconds (25.6-37.1) L 07/25/18 18:50 Sodium 136 mmol/l (132-148) 07/25/18 18:50 Potassium 4.2 MMOL/L (3.6-5.0) 07/25/18 18:50 Chloride 110 mmol/L (98-107) H 07/25/18 18:50 Carbon Dioxide 17 mmol/L (22-30) L 07/25/18 18:50 Anion Gap 13 (10-20) 07/25/18 18:50 BUN 11 mg/dl (7-17) 07/25/18 18:50 Creatinine 0.6 mg/dl (0.7-1.2) L 07/25/18 18:50 Est GFR ( Amer) > 60 07/25/18 18:50 Est GFR (Non-Af Amer) > 60 07/25/18 18:50 Random Glucose 102 mg/dL (65-105) 07/25/18 18:50 Calcium 8.4 mg/dL (8.4-10.2) 07/25/18 18:50 Total Bilirubin 0.3 mg/dl (0.2-1.3) 07/25/18 18:50 AST 23 U/L (14-36) 07/25/18 18:50 ALT 26 U/L (9-52) 07/25/18 18:50 Alkaline Phosphatase 69 U/L (38-126) 07/25/18 18:50 Total Protein 6.0 G/DL (6.3-8.2) L 07/25/18 18:50 Albumin 3.4 g/dL (3.5-5.0) L 07/25/18 18:50 Globulin 2.6 gm/dL (2.2-3.9) 07/25/18 18:50 Albumin/Globulin Ratio 1.3 (1.0-2.1) 07/25/18 18:50 Blood Type O POSITIVE 07/25/18 21:20 Antibody Screen Negative 07/25/18 21:20 Crossmatch See Detail 07/25/18 21:20 BBK History Checked Patient has bt 07/25/18 21:20 - Hospital Course Hospital Course: 47 year old female with pmh of HTN and fibroids, resulting in anemia from bleeding fibroids requiring transfusions multiple times in the past (was just here last week) again presenting to the ED with anemia secondary to bleeding. She was told to f/u with [facility] on last admission but failed to follow up. Her Hg is 4.1, Hct is 13.9. She does note some associated lightheadedness which prompted her to come to the ED. In the ED she was noted to be pale with Hgb 4.1 She was placed on observation in telemetry for symptomatic anemia and transfuused 3 unit PRBC . Ob & Peer Tutor consulted and started her on provera. Patient feeling better post transfusion . She has a follow up appointment with Ob clinic to discuss and schedule any possible surgical intervention will discharge patient home after transfusion Discharge Exam - Head Exam Head Exam: ATRAUMATIC, NORMAL INSPECTION, NORMOCEPHALIC - Eye Exam Eye Exam: EOMI, Normal appearance, PERRL Pupil Exam: NORMAL ACCOMODATION - ENT Exam ENT Exam: Mucous Membranes Moist, Normal Exam - Neck Exam Neck exam: Full Rom, Normal Inspection - Respiratory Exam Respiratory Exam: Clear to PA & Lateral, NORMAL BREATHING PATTERN. absent: Rales, Rhonchi, Wheezes - Cardiovascular Exam Cardiovascular Exam: REGULAR RHYTHM, RRR, +S1, +S2. absent: JVD - GI/Abdominal Exam GI & Abdominal Exam: Normal Bowel Sounds, Soft. absent: Distended, Guarding, Tenderness - Rectal Exam Rectal Exam: Deferred - Extremities Exam Extremities exam: normal capillary refill, normal inspection, pedal pulses present - Back Exam Back exam: NORMAL INSPECTION - Neurological Exam Neurological exam: Alert, CN II-XII Intact - Psychiatric Exam Psychiatric exam: Normal Affect - Skin Skin Exam: Dry, Pallor, Warm Discharge Plan - Discharge Medications Prescriptions: MedroxyPROGESTERone [Provera] 20 mg PO DAILY #30 tab - Follow Up Plan Condition: STABLE Disposition: HOME/ ROUTINE Patient education suggested?: Yes Instructions: Uterine Fibroids [facility]] [facility] [Outside]
[2018-07-26 13:06] LABS: MEAN CELL VOLUME 84.3 fl (81.0-99.0); MEAN CORPUSCULAR HEMOGLOBIN 27.1 pg (27.0-31.0); MEAN CORPUSCULAR HGB CONC 32.2 g/dL (33.0-37.0); RBC 2.33 Mil/uL (3.80-5.20); RED CELL DISTRIBUTION WIDTH 16.6 % (11.5-14.5); WHITE BLOOD COUNT 6.9 K/uL (4.8-10.8)
[2018-07-26 13:12] LABS: HEMOGLOBIN 6.3 g/dL (12.0-16.0)
[2018-07-26 13:28] LABS: BLOOD UREA NITROGEN 8 mg/dl (7-17); GFR NON-AFRICAN AMERICAN > 60
[2018-07-26 21:12] LABS: MEAN CELL VOLUME 85.5 fl (81.0-99.0); MEAN CORPUSCULAR HGB CONC 32.8 g/dL (33.0-37.0); RBC 2.75 Mil/uL (3.80-5.20); RED CELL DISTRIBUTION WIDTH 16.1 % (11.5-14.5); WHITE BLOOD COUNT 8.3 K/uL (4.8-10.8)
[2018-07-26 21:13] LABS: HEMOGLOBIN 7.7 g/dL (12.0-16.0)
[2018-07-27 00:44] VITALS: RESP 18
[2018-07-27 05:04] VITALS: O2SAT 100
[2018-07-27 06:46] LABS: MEAN CELL VOLUME 84.8 fl (81.0-99.0); MEAN CORPUSCULAR HEMOGLOBIN 27.8 pg (27.0-31.0); MEAN CORPUSCULAR HGB CONC 32.8 g/dL (33.0-37.0); RBC 2.8 Mil/uL (3.80-5.20); RED CELL DISTRIBUTION WIDTH 16.1 % (11.5-14.5); WHITE BLOOD COUNT 6.8 K/uL (4.8-10.8)
[2018-07-27 06:48] LABS: HEMOGLOBIN 7.8 g/dL (12.0-16.0)
[2018-07-27 08:11] VITALS: BP 123/82; TEMP 98.1
[2018-07-27 11:49] VITALS: PULSE 92
== END 2018-07-27 12:28 | disposition home or self-care (01) ==
LOC: H.ER 16:33 → H.ERHOLD 19:50 → H.TEL 23:48
PROVIDERS: ADMIT Internal Medicine; ATTEND Internal Medicine
DX: D25.9 Leiomyoma of uterus, unspecified (principal); D50.0 Iron deficiency anemia secondary to blood loss (chronic); I10 Essential (primary) hypertension; N83.209 Unspecified ovarian cyst, unspecified side; Z98.51 Tubal ligation status; G43.909 Migraine, unspecified, not intractable, without status migrainosus
CPT/HCPCS: 36415; 36430; 80048; 80053; 81025; 85025; 85027; 85610; 85730; 86850; 86900; 86920; 93005; 96360; 99285; G0378; J7030; P9051

== ENCOUNTER 2018-12-23 12:56 | Observation (INO) | payer SELFPAY ==
[2018-12-23] MEDS ORDERED: Sodium Chloride 0.9% 1,000 ML IV STA (14:10)
--- NOTE | 2018-12-23 14:32 | ED PDOC ---
HPI: Female Pain Time Seen by Provider: 12/23/18 13:28 Chief Complaint (Nursing): Female Genitourinary Chief Complaint (Provider): heavy vaginal bleeding History Per: Patient History/Exam Limitations: no limitations Onset/Duration Of Symptoms: Days (5) Additional Complaint(s): 48 y/o F with hx of uterine fibroids, anemia and HTN who presents with recurrent vaginal bleeding x 5 days. Pt states that she has known uterine fibroids and anemia. She has been changing her sanitary napkins every 20min and feels lightheaded. She feels like she is very anemic and likely needs a blood transfusion. The last time that she had bleeding requiring blood transfusion was in 07/2018. She has had intermittent shortness of breath. Denies palpitations, chest pain. Abnormal Vaginal Bleeding: Yes Past Medical History Vital Signs: Last Vital Signs Temp 97.8 F 12/23/18 13:19 Pulse 107 H 12/23/18 13:19 Resp 18 12/23/18 13:19 BP 149/89 12/23/18 13:19 Pulse Ox 100 12/23/18 13:19 - Medical History PMH: Anemia, HTN, Migraine Denies: Chronic Kidney Disease - Family History Family History: States: Unknown Family Hx, Hypertension - Immunization History Hx Tetanus Toxoid Vaccination: No Hx Influenza Vaccination: No Hx Pneumococcal Vaccination: No - Home Medications Home Medications: Ambulatory Orders Medication Instructions Recorded No Known Home Med 12/23/18 - Allergies Allergies/Adverse Reactions: Allergies Allergy/AdvReac Type Severity Reaction Status Date / Time No Known Allergies Allergy Verified 12/23/18 13:18 Physical Exam - Reviewed Nursing Documentation Reviewed: Yes Vital Signs Reviewed: Yes - Physical Exam Appears: Positive for: Non-toxic Head Exam: Positive for: ATRAUMATIC Eye Exam: Positive for: EOMI, PERRL ENT: Positive for: TM Is/Are (obscured by cerumen on Right and normal on left. ). Negative for: Nasal Congestion, Pharyngeal Erythema Neck: Positive for: Normal Cardiovascular/Chest: Positive for: Regular Rate, Rhythm Respiratory: Positive for: Normal Breath Sounds Gastrointestinal/Abdominal: Positive for: Tenderness (mild tenderness on LLQ which she states is chronic) Neurologic/Psych: Positive for: Alert, Oriented - Laboratory Results Result Diagrams: 12/23/18 14:24 - ECG O2 Sat by Pulse Oximetry: 100 Medical Decision Making Medical Decision Making: CBC, Type and screen Orthostatic BP NS 1L IV x 1 EKG EKG: sinus, HR 89, no ischemic change. HgB: 6.6 from 7.8 in 07/2018 (post-transfusion) Pt to be admitted under Dr. Moore for acute anemia with gynecology consultation. Disposition - Clinical Impression Clinical Impression: Menorrhagia - Patient ED Disposition Is Patient to be Admitted: Yes Discussed With Dr.: Harry Moore Doctor Will See Patient In The: Hospital - Disposition Disposition: Transfer of Care Disposition Time: 15:51 Condition: FAIR Forms: [facility] (German)
[2018-12-23 14:41] LABS: BASO # 0.1 K/uL (0.0-0.2); BASO % 0.9 % (0.0-2.0); EOS % 0.5 % (0.0-4.0); HEMOGLOBIN 6.6 g/dL (12.0-16.0); LYMPH # 1.1 K/uL (1.0-4.3); LYMPH % 14.5 % (20.0-40.0); MEAN CORPUSCULAR HEMOGLOBIN 19.9 pg (27.0-31.0); MEAN CORPUSCULAR HGB CONC 29.7 g/dL (33.0-37.0); MEAN PLATELET VOLUME 8.9 fl (7.2-11.7); MONO # 0.5 K/uL (0.0-0.8); MONO % 6.4 % (0.0-10.0); NEUT % 77.7 % (50.0-75.0); NRBC % 0.3 % (0.0-0.0); RBC 3.32 Mil/uL (3.80-5.20); RED CELL DISTRIBUTION WIDTH 21.2 % (11.5-14.5); WHITE BLOOD COUNT 7.7 K/uL (4.8-10.8)
--- NOTE | 2018-12-23 16:21 | CP.PCM.HP ---
<Karen Sanz - Last Filed: 12/23/18 16:22> History of Present Illness - History of Present Illness History of Present Illness: 48 year old female with PMH of HTN, menorrhagia, iron deficiency anemia presented with 4 day history of heavy menses with clots. Changing pads every hour. She has dizziness and dyspnea on exertion but denies any chest pain. She was admitted in Jul for severe symptomatic anemia with Hg of 4.1, she was transfused 3 units of PRBCs and d/c on provera. She never followed up with the clinic or DENTAL FRONT OFFICE ASSISTANT. She gets dizziness and fatigue with menses, reportedly regular with menorrhagia. She states menorrhagia began after BTL 17 years ago. LMP: 12/19/18 No PMD. PMHX: HTN, Fibroids, Menorrhagia, Iron Deficiency Anemia DENTAL FRONT OFFICE ASSISTANT Hx: , NVD x3, s/p BTL Meds: unknown ; [facility] : Losartan 40mg (pt last picked up in April) Allergies: NKDA Social: no tobacco, no etoh, no illicit drugs Surgical: BTL 2001 Present on Admission - Present on Admission Any Indicators Present on Admission: No Review of Systems - Review of Systems All systems: reviewed and no additional remarkable complaints except - Constitutional Constitutional: Fatigue, Weakness - Cardiovascular Cardiovascular: Dyspnea on Exertion. absent: Chest Pain, Chest Pain at Rest - Respiratory Respiratory: Dyspnea, Dyspnea on Exertion. absent: Cough - Gastrointestinal Gastrointestinal: absent: Abdominal Pain Past Patient History - Infectious Disease Hx of Infectious Diseases: None - Tetanus Immunizations Tetanus Immunization: Unknown - Past Medical History & Family History Past Medical History?: Yes - Past Social History Smoking Status: Never Smoked - CARDIAC Hx Hypertension: Yes - PULMONARY Hx Respiratory Disorders: No - NEUROLOGICAL Hx Migraine: Yes - HEENT Hx HEENT Problems: No - RENAL Hx Chronic Kidney Disease: No - ENDOCRINE/METABOLIC Hx Endocrine Disorders: No - HEMATOLOGICAL/ONCOLOGICAL Hx Anemia: Yes - INTEGUMENTARY Hx Dermatological Problems: No - MUSCULOSKELETAL/RHEUMATOLOGICAL Hx Musculoskeletal Disorders: No Hx Falls: No - GASTROINTESTINAL Hx Gastrointestinal Disorders: No - GENITOURINARY/GYNECOLOGICAL Hx Genitourinary Disorders: Yes Other/Comment: fibroids, ovarian cysts, abnormal vaginal bleeding - PSYCHIATRIC Hx Psychophysiologic Disorder: No Hx Substance Use: No - SURGICAL HISTORY Hx Surgeries: Yes Hx Tubal Ligation: Yes - ANESTHESIA Hx Anesthesia: Yes Hx Anesthesia Reactions: No Hx Malignant Hyperthermia: No Meds Allergies/Adverse Reactions: Allergies Allergy/AdvReac Type Severity Reaction Status Date / Time No Known Allergies Allergy Verified 12/23/18 13:18 Physical Exam - Constitutional Appears: Non-toxic (pale) - Head Exam Head Exam: ATRAUMATIC, NORMAL INSPECTION, NORMOCEPHALIC - Eye Exam Eye Exam: PERRL Additional comments: conjunctival pallor - Neck Exam Neck exam: Positive for: Full Rom - Respiratory Exam Respiratory Exam: Clear to Auscultation Bilateral, NORMAL BREATHING PATTERN. absent: Decreased Breath Sounds, Rales, Rhonchi, Wheezes - Cardiovascular Exam Cardiovascular Exam: REGULAR RHYTHM, +S1, +S2 Additional comments: +murmur - GI/Abdominal Exam GI & Abdominal Exam: Normal Bowel Sounds, Soft. absent: Distended, Tenderness - Neurological Exam Neurological exam: Alert - Psychiatric Exam Psychiatric exam: Normal Affect, Normal Mood - Skin Skin Exam: Pallor Results - Vital Signs Recent Vital Signs: Last Vital Signs Temp 97.8 F 12/23/18 13:19 Pulse 107 H 12/23/18 13:19 Resp 18 12/23/18 13:19 BP 149/89 12/23/18 13:19 Pulse Ox 100 12/23/18 15:51 - Labs Result Diagrams: 12/23/18 14:24 Labs: Laboratory Results - last 24 hr 12/23/18 12/23/18 14:24 14:24 WBC 7.7 RBC 3.32 L Hgb 6.6 L Hct 22.3 L MCV 67.0 L D MCH 19.9 L MCHC 29.7 L RDW 21.2 H Plt Count 314 MPV 8.9 Neut % (Auto) 77.7 H Lymph % (Auto) 14.5 L Swain % (Auto) 6.4 Eos % (Auto) 0.5 Baso % (Auto) 0.9 Neut # (Auto) 6.0 Lymph # (Auto) 1.1 Swain # (Auto) 0.5 Eos # (Auto) 0.0 Baso # (Auto) 0.1 Blood Type O POSITIVE Antibody Screen Negative Crossmatch See Detail BBK History Checked Patient has bt Assessment & Plan - Assessment and Plan (Free Text) Assessment: 48 year old female with PMH of HTN, anemia, fibroids, menorrhagia, presented with 4 day history of heavy menses with clots admitted for symptomatic anemia secondary to menorrhagia due to fibroids. Patient has had multiple blood transfusions in the past year. Patient did well with Provera after discharge last admission, the importance of follow up outpatient with DENTAL FRONT OFFICE ASSISTANT was discussed with the patient as this is not her first admission with severe blood loss secondary to menorrhagia. Patient is unsure of medication she takes for HTN. #. Symptomatic anemia #. Menorrhagia #. Fibroids #. HTN #. DVT prophylaxis Plan: -Transfuse 2 units PRBCs -Check TSH -repeat cbc in AM -DENTAL FRONT OFFICE ASSISTANT consult -Monitor BP, pt unsure of medication: pharmacy states she last picked up Losartan 40mg in April. -If BP remains elevated will restart meds -SCDs Olaf Sanz PGY-3 case d/w Dr. Moore <Harry Moore - Last Filed: 12/23/18 17:26> Results - Vital Signs Recent Vital Signs: Last Vital Signs Temp 98.3 F 12/23/18 17:19 Pulse 95 H 12/23/18 17:19 Resp 16 12/23/18 17:19 BP 124/82 12/23/18 17:19 Pulse Ox 100 12/23/18 16:41 - Labs Result Diagrams: 12/23/18 14:24 12/23/18 16:27 Labs: Laboratory Results - last 24 hr 12/23/18 12/23/18 12/23/18 14:24 14:24 16:27 WBC 7.7 RBC 3.32 L Hgb 6.6 L Hct 22.3 L MCV 67.0 L D MCH 19.9 L MCHC 29.7 L RDW 21.2 H Plt Count 314 MPV 8.9 Neut % (Auto) 77.7 H Lymph % (Auto) 14.5 L Swain % (Auto) 6.4 Eos % (Auto) 0.5 Baso % (Auto) 0.9 Neut # (Auto) 6.0 Lymph # (Auto) 1.1 Swain # (Auto) 0.5 Eos # (Auto) 0.0 Baso # (Auto) 0.1 Sodium 137 Potassium 3.6 Chloride 106 Carbon Dioxide 23 Anion Gap 12 BUN 12 Creatinine 0.5 L Est GFR ( Amer) > 60 Est GFR (Non-Af Amer) > 60 Random Glucose 87 Calcium 9.3 Blood Type O POSITIVE Antibody Screen Negative Crossmatch See Detail BBK History Checked Patient has bt Attending/Attestation - Attestation I have personally seen and examined this patient.: Yes I have fully participated in the care of the patient.: Yes I have reviewed all pertinent clinical information: Yes Notes (Text): 12/23/18 17:25 Patient seen and examined with resident. Case discussed and agreed with assessment and plan of management.
[2018-12-23 16:45] LABS: BLOOD UREA NITROGEN 12 mg/dl (7-17); CALCIUM 9.3 mg/dL (8.4-10.2); GFR NON-AFRICAN AMERICAN > 60
--- NOTE | 2018-12-23 18:13 | CP.PCM.CON ---
History of Present Illness - History of Present Illness History of Present Illness: OBGYN consult note: 48 y/o female w/ pmhx of multiple uterine fibroids, anemia, and HTN who c/o heavy vaginal bleeding x4 days. She reports dizziness and nausea. Denies CP, SOB. She had several similar episodes in the past, and has required hospitalization for blood transfusions. She was admitted and evaluated in July of 2018 due to anemia secondary to menorrhagia, transfused w/ PRBC, started on Provera, stabilized and discharged to home w/ instructions to follow up w/ outpatient OBGYN. 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 LMP: 12/19/18 OBGYN Hx: , NVD x3, s/p bilateral tubal ligation 2001. Fibroids, Menorrhagia. Review of Systems - Constitutional Constitutional: absent: Fever - Cardiovascular Cardiovascular: absent: Chest Pain - Gastrointestinal Gastrointestinal: absent: Hematemesis, Hematochezia - Genitourinary Genitourinary: absent: Dysuria - Reproductive: Female Reproductive:Female: Heavy Menses Past Patient History - Infectious Disease Hx of Infectious Diseases: None - Tetanus Immunizations Tetanus Immunization: Unknown - Past Medical History & Family History Past Medical History?: Yes - Past Social History Smoking Status: Never Smoked - CARDIAC Hx Hypertension: Yes - PULMONARY Hx Respiratory Disorders: No - NEUROLOGICAL Hx Migraine: Yes - HEENT Hx HEENT Problems: No - RENAL Hx Chronic Kidney Disease: No - ENDOCRINE/METABOLIC Hx Endocrine Disorders: No - HEMATOLOGICAL/ONCOLOGICAL Hx Anemia: Yes - INTEGUMENTARY Hx Dermatological Problems: No - MUSCULOSKELETAL/RHEUMATOLOGICAL Hx Musculoskeletal Disorders: No - GASTROINTESTINAL Hx Gastrointestinal Disorders: No - GENITOURINARY/GYNECOLOGICAL Hx Genitourinary Disorders: Yes - PSYCHIATRIC Hx Psychophysiologic Disorder: No - SURGICAL HISTORY Hx Surgeries: Yes Hx Tubal Ligation: Yes - ANESTHESIA Hx Anesthesia: Yes Hx Anesthesia Reactions: No Hx Malignant Hyperthermia: No Meds Allergies/Adverse Reactions: Allergies Allergy/AdvReac Type Severity Reaction Status Date / Time No Known Allergies Allergy Verified 12/23/18 13:18 Physical Exam - Constitutional Appears: No Acute Distress - Respiratory Exam Respiratory Exam: Clear to Auscultation Bilateral - Cardiovascular Exam Cardiovascular Exam: REGULAR RHYTHM, +S1, +S2 - GI/Abdominal Exam GI & Abdominal Exam: Normal Bowel Sounds, Soft. absent: Tenderness - Exam External exam: NORMAL EXTERNAL EXAM Speculum exam: absent: Laceration, Vaginal Bleeding (No active vaginal bleed) - Neurological Exam Neurological exam: Alert - Psychiatric Exam Psychiatric exam: Normal Affect Results - Vital Signs Recent Vital Signs: Last Vital Signs Temp 98.1 F 12/23/18 17:49 Pulse 88 12/23/18 17:49 Resp 16 12/23/18 17:49 BP 144/69 12/23/18 17:49 Pulse Ox 100 12/23/18 16:41 - Labs Result Diagrams: 12/24/18 06:00 12/23/18 16:27 Labs: Laboratory Results - last 24 hr 12/23/18 12/23/18 12/23/18 14:24 14:24 16:27 WBC 7.7 RBC 3.32 L Hgb 6.6 L Hct 22.3 L MCV 67.0 L D MCH 19.9 L MCHC 29.7 L RDW 21.2 H Plt Count 314 MPV 8.9 Neut % (Auto) 77.7 H Lymph % (Auto) 14.5 L Kaufman % (Auto) 6.4 Eos % (Auto) 0.5 Baso % (Auto) 0.9 Neut # (Auto) 6.0 Lymph # (Auto) 1.1 Kaufman # (Auto) 0.5 Eos # (Auto) 0.0 Baso # (Auto) 0.1 Sodium 137 Potassium 3.6 Chloride 106 Carbon Dioxide 23 Anion Gap 12 BUN 12 Creatinine 0.5 L Est GFR ( Amer) > 60 Est GFR (Non-Af Amer) > 60 Random Glucose 87 Calcium 9.3 TSH 3rd Generation Blood Type O POSITIVE Antibody Screen Negative Crossmatch See Detail BBK History Checked Patient has bt 12/23/18 17:00 WBC RBC Hgb Hct MCV MCH MCHC RDW Plt Count MPV Neut % (Auto) Lymph % (Auto) Kaufman % (Auto) Eos % (Auto) Baso % (Auto) Neut # (Auto) Lymph # (Auto) Kaufman # (Auto) Eos # (Auto) Baso # (Auto) Sodium Potassium Chloride Carbon Dioxide Anion Gap BUN Creatinine Est GFR ( Amer) Est GFR (Non-Af Amer) Random Glucose Calcium TSH 3rd Generation 1.55 Blood Type Antibody Screen Crossmatch BBK History Checked Assessment & Plan - Assessment and Plan (Free Text) Assessment: 48 y/o female w/ pmhx of multiple uterine fibroids, anemia, and HTN who c/o heavy vaginal bleeding x4 days. Plan: Menorrhagia Likely secondary to fibroids (seen on TVUS in july 2018). Speculum exam does not show active bleeding at this time. Recommend repeat TVUS to assess for interval changes. Patient counseled extensively on importance of outpatient follow up. Patient aware she will need outpatient endometrial biopsy. Patient agreeable to outpatient follow up; this author sent telephone encounter to central scheduling to arrange appointment at [place] and women[facility] services. Patient advised of ER precautions. Will sign off. Thank you for allowing us to participate in Mrs. Lyman's care. Case discussed w/ attending, Dr. Yasir Villaseñor, pgyi
[2018-12-23 21:52] VITALS: RESP 20
[2018-12-23] MEDS ORDERED: Influenza Vaccine 60 mcg/0.5 mL SYR (4YR UP) IM ONE (22:30)
[2018-12-24 06:28] LABS: HEMOGLOBIN 8.5 g/dL (12.0-16.0); MEAN CELL VOLUME 71.8 fl (81.0-99.0); MEAN CORPUSCULAR HEMOGLOBIN 22.9 pg (27.0-31.0); MEAN CORPUSCULAR HGB CONC 31.9 g/dL (33.0-37.0); RBC 3.71 Mil/uL (3.80-5.20); RED CELL DISTRIBUTION WIDTH 24.5 % (11.5-14.5); WHITE BLOOD COUNT 6.3 K/uL (4.8-10.8)
[2018-12-24 08:20] VITALS: BP 137/82; PULSE 80; TEMP 98; O2SAT 96
--- NOTE | 2018-12-24 08:31 | CP.PCM.PN ---
Subjective - Date & Time of Evaluation Date of Evaluation: 12/24/18 Time of Evaluation: 09:00 Objective - Vital Signs/Intake and Output Vital Signs (last 24 hours): Temp Pulse Resp BP Pulse Ox 98.0 F 80 20 137/82 96 12/24/18 08:19 12/24/18 08:19 12/24/18 08:19 12/24/18 08:19 12/24/18 08:19 Intake and Output: 12/24/18 12/24/18 06:59 18:59 Intake Total 670 Balance 670 - Medications Medications: Current Medications Ferrous Sulfate (Feosol) 325 mg PO DAILY ADAM - Labs Labs: 12/24/18 06:00 12/23/18 16:27
[2018-12-24] MEDS ORDERED: Influenza Vaccine (5 YR UP)/PF 60 MCG/0.5 ML SYR IM ONE (09:00)
[2018-12-24] MEDS ORDERED: Pneumococcal 23-Valent Vaccine IM ONE (09:00)
--- NOTE | 2018-12-24 10:37 | US ---
Date of service: 12/24/2018 HISTORY: assess for interval changes of fibroids COMPARISON: Pelvic ultrasound dated 07/17/2018. TECHNIQUE: Grayscale, color Doppler and spectral evaluation the pelvis performed transvaginally FINDINGS: UTERUS: Measures 12.8 x 7.7 x 9.0 cm. Everted. Normal in size and appearance. Posterior intramural fibroid measuring 2.1 x 0.8 x 2.5 cm. Another posterior intramural fibroid measuring 2.3 x 1.7 by 1.6 cm. Lower uterine segment posterior intramural fibroid measuring 1.4 x 1.2 x 1.4 cm. Fundal subserosal fibroid measuring 2.9 x 2.6 by 3.4 cm. These have all slightly increased in size. ENDOMETRIUM: Measures 15 mm in diameter. Trace endometrial fluid. CERVIX: No cervical abnormality identified. RIGHT OVARY: Measures 3.4 x 2.3 x 2.5 cm. Dominant follicle measuring 1.3 x 0.9 x 1.2 cm. Normal flow. LEFT OVARY: Measures 4.2 x 3.8 x 3.8 cm. Dominant follicle/cyst measuring 2.9 x 2.7 x 2.9 cm. Normal flow. FREE FLUID: No significant free fluid noted. OTHER FINDINGS: None. IMPRESSION: Multi fibroid uterus with slight interval enlargement of all visualized fibroids. Dominant follicle/cyst in the left ovary measuring up to 2.9 cm.
--- NOTE | 2018-12-24 11:32 | CP.PCM.DIS ---
<Tasha Santos - Last Filed: 12/24/18 11:45> Provider - Provider Date of Admission: 12/23/18 16:12 Attending physician: Harry Moore MD Consults: 12/23/18 15:33 Gyno [FINANCIAL OFFICER Consult] Stat Comment: Consulting Provider: Tc Cooley Consulting Physician: Tc Cooley Reason for Consult: acute anemia, HgB 6.6, fibroids Time Spent in preparation of Discharge (in minutes): 30 Diagnosis - Discharge Diagnosis (1) Anemia Status: Acute (2) Abnormal uterine bleeding (AUB) Status: Acute Hospital Course - Lab Results Lab Results: Most Recent Lab Values WBC 6.3 K/uL (4.8-10.8) 12/24/18 06:00 RBC 3.71 Mil/uL (3.80-5.20) L 12/24/18 06:00 Hgb 8.5 g/dL (12.0-16.0) L 12/24/18 06:00 Hct 26.6 % (34.0-47.0) L 12/24/18 06:00 MCV 71.8 fl (81.0-99.0) L D 12/24/18 06:00 MCH 22.9 pg (27.0-31.0) L 12/24/18 06:00 MCHC 31.9 g/dL (33.0-37.0) L 12/24/18 06:00 RDW 24.5 % (11.5-14.5) H 12/24/18 06:00 Plt Count 259 K/uL (130-400) 12/24/18 06:00 MPV 8.9 fl (7.2-11.7) 12/23/18 14:24 Neut % (Auto) 77.7 % (50.0-75.0) H 12/23/18 14:24 Lymph % (Auto) 14.5 % (20.0-40.0) L 12/23/18 14:24 Stafford % (Auto) 6.4 % (0.0-10.0) 12/23/18 14:24 Eos % (Auto) 0.5 % (0.0-4.0) 12/23/18 14:24 Baso % (Auto) 0.9 % (0.0-2.0) 12/23/18 14:24 Neut # (Auto) 6.0 K/uL (1.8-7.0) 12/23/18 14:24 Lymph # (Auto) 1.1 K/uL (1.0-4.3) 12/23/18 14:24 Stafford # (Auto) 0.5 K/uL (0.0-0.8) 12/23/18 14:24 Eos # (Auto) 0.0 K/uL (0.0-0.7) 12/23/18 14:24 Baso # (Auto) 0.1 K/uL (0.0-0.2) 12/23/18 14:24 Sodium 137 mmol/l (132-148) 12/23/18 16:27 Potassium 3.6 MMOL/L (3.6-5.0) 12/23/18 16:27 Chloride 106 mmol/L (98-107) 12/23/18 16:27 Carbon Dioxide 23 mmol/L (22-30) 12/23/18 16:27 Anion Gap 12 (10-20) 12/23/18 16:27 BUN 12 mg/dl (7-17) 12/23/18 16:27 Creatinine 0.5 mg/dl (0.7-1.2) L 12/23/18 16:27 Est GFR ( Amer) > 60 12/23/18 16:27 Est GFR (Non-Af Amer) > 60 12/23/18 16:27 Random Glucose 87 mg/dL (65-105) 12/23/18 16:27 Calcium 9.3 mg/dL (8.4-10.2) 12/23/18 16:27 TSH 3rd Generation 2.81 mIU/ML (0.46-4.68) 12/23/18 17:00 Blood Type O POSITIVE 12/23/18 14:24 Antibody Screen Negative 12/23/18 14:24 Crossmatch See Detail 12/23/18 14:24 BBK History Checked Patient has bt 12/23/18 14:24 - Hospital Course Hospital Course: 48 year old female with medical history of of HTN, anemia, fibroids, and menorrhagia admitted for symptomatic anemia (H/H of 6.6/22.3) secondary to menorrhagia due to fibroids. Patient had been admitted multiple times for symptomatic anemia secondary to menorrhagia. During her hospital stay. Patient was noted to be tachycardic (90's). Patient recieved a transfusion of 2 units of pRBC's. Tachycardia resolved and repeat H/H was 8.5/26.6. Symptoms ceased. 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 Patient is now stable for discharge. - Date & Time of H&P Date of H&P: 12/23/18 Discharge Exam - Head Exam Head Exam: ATRAUMATIC, NORMAL INSPECTION, NORMOCEPHALIC - Eye Exam Eye Exam: Normal appearance - ENT Exam ENT Exam: Mucous Membranes Moist Additional comments: No evidence of bleeding in nostrils or mouth. - Respiratory Exam Respiratory Exam: Clear to PA & Lateral, NORMAL BREATHING PATTERN, UNREMARKABLE. absent: Accessory Muscle Use, Decreased Breath Sounds, Prolonged Expiratory Phase, Rales, Rhonchi, Wheezes, Respiratory Distress, Stridor - Cardiovascular Exam Cardiovascular Exam: REGULAR RHYTHM, RRR, +S1, +S2. absent: Clicks, Rubs, +S4, Systolic Murmur - GI/Abdominal Exam GI & Abdominal Exam: Normal Bowel Sounds, Soft, Unremarkable. absent: Distended, Firm, Guarding, Pulsatile Mass, Rebound, Rigid, Tenderness - Extremities Exam Extremities exam: normal capillary refill, normal inspection - Neurological Exam Neurological exam: Alert, Oriented x3 - Skin Skin Exam: Dry, Intact, Normal Color, Warm Discharge Plan - Discharge Medications Prescriptions: MedroxyPROGESTERone [Provera] 10 mg PO DAILY 30 Days #30 tab - Follow Up Plan Condition: FAIR Disposition: HOME/ ROUTINE Instructions: Anemia Caused by Low Iron, Adult (DC), Heavy Periods (DC) Additional Instructions: [facility] 01/01/19 3:40pm Referrals: [facility] [Outside] <Harry Moore - Last Filed: 12/24/18 13:23> Provider - Provider Date of Admission: 12/23/18 16:12 Attending physician: Harry Moore MD Consults: 12/23/18 15:33 Gyno [FINANCIAL OFFICER Consult] Stat Comment: Consulting Provider: Tc Cooley Consulting Physician: Tc Cooley Reason for Consult: acute anemia, HgB 6.6, fibroids Hospital Course - Lab Results Lab Results: Most Recent Lab Values WBC 6.3 K/uL (4.8-10.8) 12/24/18 06:00 RBC 3.71 Mil/uL (3.80-5.20) L 12/24/18 06:00 Hgb 8.5 g/dL (12.0-16.0) L 12/24/18 06:00 Hct 26.6 % (34.0-47.0) L 12/24/18 06:00 MCV 71.8 fl (81.0-99.0) L D 12/24/18 06:00 MCH 22.9 pg (27.0-31.0) L 12/24/18 06:00 MCHC 31.9 g/dL (33.0-37.0) L 12/24/18 06:00 RDW 24.5 % (11.5-14.5) H 12/24/18 06:00 Plt Count 259 K/uL (130-400) 12/24/18 06:00 MPV 8.9 fl (7.2-11.7) 12/23/18 14:24 Neut % (Auto) 77.7 % (50.0-75.0) H 12/23/18 14:24 Lymph % (Auto) 14.5 % (20.0-40.0) L 12/23/18 14:24 Stafford % (Auto) 6.4 % (0.0-10.0) 12/23/18 14:24 Eos % (Auto) 0.5 % (0.0-4.0) 12/23/18 14:24 Baso % (Auto) 0.9 % (0.0-2.0) 12/23/18 14:24 Neut # (Auto) 6.0 K/uL (1.8-7.0) 12/23/18 14:24 Lymph # (Auto) 1.1 K/uL (1.0-4.3) 12/23/18 14:24 Stafford # (Auto) 0.5 K/uL (0.0-0.8) 12/23/18 14:24 Eos # (Auto) 0.0 K/uL (0.0-0.7) 12/23/18 14:24 Baso # (Auto) 0.1 K/uL (0.0-0.2) 12/23/18 14:24 Sodium 137 mmol/l (132-148) 12/23/18 16:27 Potassium 3.6 MMOL/L (3.6-5.0) 12/23/18 16:27 Chloride 106 mmol/L (98-107) 12/23/18 16:27 Carbon Dioxide 23 mmol/L (22-30) 12/23/18 16:27 Anion Gap 12 (10-20) 12/23/18 16:27 BUN 12 mg/dl (7-17) 12/23/18 16:27 Creatinine 0.5 mg/dl (0.7-1.2) L 12/23/18 16:27 Est GFR ( Amer) > 60 12/23/18 16:27 Est GFR (Non-Af Amer) > 60 12/23/18 16:27 Random Glucose 87 mg/dL (65-105) 12/23/18 16:27 Calcium 9.3 mg/dL (8.4-10.2) 12/23/18 16:27 TSH 3rd Generation 2.81 mIU/ML (0.46-4.68) 12/23/18 17:00 Blood Type O POSITIVE 12/23/18 14:24 Antibody Screen Negative 12/23/18 14:24 Crossmatch See Detail 12/23/18 14:24 BBK History Checked Patient has bt 12/23/18 14:24 Attending/Attestation - Attestation I have personally seen and examined this patient.: Yes I have fully participated in the care of the patient.: Yes I have reviewed all pertinent clinical information, including history, physical exam and plan: Yes Notes (Text): 12/24/18 13:17 Patient seen and examined with resident. Case discussed and agreed with assessment and plan. Patient received 2 units of PRBC. Gyne consulted and advised Provera 10mg daily and to follow up with Dr Reyes as outpatient.
--- NOTE | 2018-12-24 11:43 | CP.PCM.PN ---
Subjective - Date & Time of Evaluation Date of Evaluation: 12/24/18 Time of Evaluation: 11:41 Objective - Vital Signs/Intake and Output Vital Signs (last 24 hours): Temp Pulse Resp BP Pulse Ox 98.0 F 80 20 137/82 96 12/24/18 08:19 12/24/18 08:19 12/24/18 08:19 12/24/18 08:19 12/24/18 08:19 Intake and Output: 12/24/18 12/24/18 06:59 18:59 Intake Total 670 Balance 670 - Medications Medications: Current Medications Ferrous Sulfate (Feosol) 325 mg PO DAILY ADAM Last Admin: 12/24/18 08:42 Dose: 325 mg - Labs Labs: 12/24/18 06:00 12/23/18 16:27
--- NOTE | 2018-12-24 12:23 | CARD ---
APPROVED REPORT Date of service: 12/23/2018 EKG Measurement Heart [id number] <Conclusion> Normal sinus rhythm Normal ECG
== END 2018-12-24 14:46 | disposition home or self-care (01) ==
LOC: H.ER 12:56 → H.ERHOLD 16:12 → H.MEDSURG1 18:00
DX: D50.0 Iron deficiency anemia secondary to blood loss (chronic) (principal); N92.0 Excessive and frequent menstruation with regular cycle; I10 Essential (primary) hypertension; D25.9 Leiomyoma of uterus, unspecified; N93.8 Other specified abnormal uterine and vaginal bleeding; Z23 Encounter for immunization
CPT/HCPCS: 36415; 36430; 76830; 80048; 81025; 84443; 85025; 85027; 86850; 86900; 86920; 90471; 90674; 93005; 96360; 99285; G0008; G0378; J7030; P9051

== ENCOUNTER 2019-03-09 18:07 | Emergency (ER) | payer SELFPAY ==
[2019-03-09 18:23] VITALS: TEMP 98.8
--- NOTE | 2019-03-09 19:32 | ED PDOC ---
HPI: General Adult Time Seen by Provider: 03/09/19 18:27 Chief Complaint (Nursing): Dizziness/Lightheaded Chief Complaint (Provider): WEAKNESS History Per: Patient History/Exam Limitations: no limitations Onset/Duration Of Symptoms: Days (3 weeks), Waxing/Waning Severity: Moderate Additional Complaint(s): intermittent lightheadedness and weakness in legs especially when walking palpitations and shortness of breath with exertion, feeling like may pass out, no chest pain no headache no focal weakness concerned that symptoms are similar to when had severe anemia which required transfusions pmd sara beltran Past Medical History Reviewed: Historical Data, Nursing Documentation, Vital Signs Vital Signs: Last Vital Signs Temp 98.8 F 03/09/19 18:17 Pulse 93 H 03/09/19 18:17 Resp 18 03/09/19 18:17 BP 170/103 H 03/09/19 18:17 Pulse Ox 98 03/09/19 18:17 - Medical History PMH: Anemia, HTN, Migraine Denies: Chronic Kidney Disease - Surgical History Other surgeries: Tubal ligation - Family History Family History: States: Hypertension - Social History Current smoker - smoking cessation education provided: No Alcohol: None Drugs: Denies - Immunization History Hx Tetanus Toxoid Vaccination: No Hx Influenza Vaccination: No Hx Pneumococcal Vaccination: No - Home Medications Home Medications: Ambulatory Orders Medication Instructions Recorded Ferrous Sulfate [Feosol] 325 mg PO DAILY tab 12/24/18 MedroxyPROGESTERone [Provera] 10 mg PO DAILY 30 Days #30 tab 12/24/18 - Allergies Allergies/Adverse Reactions: Allergies Allergy/AdvReac Type Severity Reaction Status Date / Time No Known Allergies Allergy Verified 12/23/18 13:18 Review of Systems ROS Statement: Except As Marked, All Systems Reviewed And Found Negative (and as per HPI) Constitutional: Positive for: Weakness. Negative for: Fever, Chills Respiratory: Positive for: Shortness of Breath, SOB with Exertion Neurological: Positive for: Weakness, Dizziness. Negative for: Numbness, Incoordination, Change in Speech, Headache Physical Exam - Reviewed Nursing Documentation Reviewed: Yes Vital Signs Reviewed: Yes - Physical Exam Appears: Positive for: Non-toxic, No Acute Distress Head Exam: Positive for: ATRAUMATIC, NORMOCEPHALIC Skin: Positive for: Warm, Dry Eye Exam: Positive for: EOMI, PERRL. Negative for: Nystagmus ENT: Negative for: Pharyngeal Erythema, Tonsillar Exudate Neck: Positive for: Painless ROM, Supple Cardiovascular/Chest: Positive for: Regular Rate, Rhythm. Negative for: Murmur Respiratory: Positive for: Normal Breath Sounds. Negative for: Respiratory Distress Gastrointestinal/Abdominal: Positive for: Soft. Negative for: Tenderness Back: Positive for: Normal Inspection. Negative for: Decreased ROM Extremity: Positive for: Normal ROM. Negative for: Deformity Lymphatic: Negative for: Adenopathy Neurological/Psych: Positive for: Awake, Alert, Oriented. Negative for: Motor/Sensory Deficits - Laboratory Results Result Diagrams: 03/09/19 19:47 03/09/19 19:47 Lab Results: Mild anemia, improved c/w previous Elevated BUN, which may be from dehydration but essentially nonemergent. No emergently significant abnormalities - ECG ECG: Positive for: Interpreted By Me ECG Rhythm: Positive for: Normal QRS, Normal ST Segment, Sinus Rhythm O2 Sat by Pulse Oximetry: 98 Pulse Ox Interpretation: Normal - Progress Re-evaluation Time: 21:00 Condition: Improved (BP normalized while in ER without intervention) Disposition - Clinical Impression Clinical Impression: Dizziness Counseled Patient/Family Regarding: Studies Performed, Diagnosis, Need For Followup - Disposition Disposition: Routine/Home Disposition Time: 21:40 Condition: STABLE Additional Instructions: VISITA CASTAÑEDA DOCTOR ESTA SEMANA A CHEQAR DE NUEVO CONTINUE TODOS ROCKY MEDICAMENTOS A RECETO Instructions: Dizziness, Nonvertigo, (DC) Forms: [facility] ED School/Work Excuse Print Language: UPPER SORBIAN
[2019-03-09 20:16] LABS: BASO # 0.1 K/uL (0.0-0.2); EOS # 0.1 K/uL (0.0-0.7); EOS % 1.9 % (0.0-4.0); HEMOGLOBIN 10.8 g/dL (12.0-16.0); LYMPH # 1.4 K/uL (1.0-4.3); LYMPH % 19.8 % (20.0-40.0); MEAN CELL VOLUME 76.8 fl (81.0-99.0); MEAN CORPUSCULAR HEMOGLOBIN 23.7 pg (27.0-31.0); MEAN CORPUSCULAR HGB CONC 30.8 g/dL (33.0-37.0); MEAN PLATELET VOLUME 8.9 fl (7.2-11.7); MONO # 0.5 K/uL (0.0-0.8); MONO % 7.5 % (0.0-10.0); NEUT # 4.8 K/uL (1.8-7.0); NEUT % 69.8 % (50.0-75.0); RBC 4.55 Mil/uL (3.80-5.20); RED CELL DISTRIBUTION WIDTH 28.2 % (11.5-14.5); WHITE BLOOD COUNT 6.8 K/uL (4.8-10.8)
[2019-03-09 20:22] LABS: INR 0.9; PROTHROMBIN TIME 10.6 Seconds (9.8-13.1)
[2019-03-09 20:25] LABS: PARTIAL THROMBOPLASTIN TIME 28.6 Seconds (25.6-37.1)
[2019-03-09 20:28] LABS: ALB/GLOB RATIO 1.3 (1.0-2.1); ALBUMIN 3.9 g/dL (3.5-5.0); ALT/SGPT 24 U/L (9-52); AST/SGOT 22 U/L (14-36); BLOOD UREA NITROGEN 19 mg/dl (7-17); GFR NON-AFRICAN AMERICAN > 60
[2019-03-09 20:58] LABS: T3 1.22 nmol/L (1.49-2.60)
[2019-03-10 08:23] VITALS: BP 150/94; PULSE 84; RESP 16; O2SAT 99
--- NOTE | 2019-03-10 08:42 | CARD ---
APPROVED REPORT Date of service: 03/09/2019 EKG Measurement Heart [id number] <Conclusion> Normal sinus rhythm Normal ECG
== END 2019-03-09 21:55 | disposition home or self-care (01) ==
LOC: H.ER 18:07
DX: R42 Dizziness and giddiness (principal); D64.9 Anemia, unspecified; I10 Essential (primary) hypertension